=== PATIENT | female | born 1930 | race Caucasian/White ===

== ENCOUNTER 2016-07-26 12:15 | Inpatient (IN) | payer BC, MEDICARE ==
[~2016-07-26] VITALS: Ht 160 cm; Wt 106.1 kg
[~2016-07-26 12:15] MED LIST: ASPI81TA9 PO; CHOL10002 PO; LOSA25TA4 PO; LOSA50TA6 PO; OMEP20CA5 PO; OMEP20CA9 PO; SIMV20TA3 PO
--- NOTE | 2016-07-26 12:29 | ED.ADGEN ---
Past Medical History Past Medical History: GERD, High Cholesterol, Hypertension, Other Additional Past Medical Histor: torticollus Past Surgical History: Knee Replacement Additional Past Surgical Histo: Left Knee Alcohol Use: None Drug Use: None Adult General Chief Complaint Chief Complaint: WEAKNESS/GENERALIZED HPI HPI Patient is a 86 year old woman, history of hypertension, hypercholesterolemia, GERD, who presents to the emergency department via EMS with a complaint of "not feeling well", for about an hour. Patient states that about an hour ago she began feeling lightheaded, and nauseous, denies any chest pain or shortness of breath, states that she does have "some stomach pain", and points to the epigastric region, although she is unable to quantify this for me. She states that she was feeling well until about an hour ago. She denies any symptoms currently aside from feeling slightly fatigued. Symptoms lasted for about 10-15 minutes. Denies any vertiginous type symptoms, any focal weakness, numbness or tingling, any headache, any visual changes, any injuries. States that she is not compliant with medications, although she is able call which medications she takes. She states that she has felt this way previously, but cannot recall the cause. She is an O 4, however is a limited historian, states her will be able to provide more information, states that he is en route. Denies any recent travel or surgery, any cough, any fever, any GI or complaints, any swelling of the extremities, any history of DVT or PE. Review of Systems Review of Systems Constitutional: Denies fever or chills. [] Generalized malaise. Weakness. Eyes: Denies change in visual acuity. [] HENT: Denies nasal congestion or sore throat. [] Respiratory: Denies cough or shortness of breath. [] Cardiovascular: Denies chest pain or edema. [] GI: Abdominal pain, nausea, no vomiting, no bloody stools or diarrhea. : Denies dysuria. [] Musculoskeletal: Denies back pain or joint pain. [] Integument: Denies rash. [] Neurologic: Denies headache, focal weakness or sensory changes. Lightheadedness. [] Endocrine: Denies polyuria or polydipsia. [] Lymphatic: Denies swollen glands. [] Psychiatric: Denies depression or anxiety. [] Current Medications Current Medications Current Medications Medications (Trade) Dose Ordered Sig/Christiano Start Time Stop Time Status Last Admin Dose Admin Sodium Chloride (Iv Sodium Chloride 0.9% 1000ml Bag) 1,000 ml @ 75 mls/hr 1X ONCE 07/26/16 14:45 07/27/16 04:04 07/26/16 14:44 75 MLS/HR Allergies Allergies Allergies Coded Allergies Type Severity Reaction Last Updated Verified I S O L A T I O N *CONTACT* Allergy Unknown 04/15/14 Yes oxycodone Adverse Reaction Intermediate nausea 08/10/13 Yes Physical Exam Physical Exam Constitutional: Well developed, well nourished, no acute distress, non-toxic appearance. [] HENT: Normocephalic, atraumatic, bilateral external ears normal, oropharynx moist, no oral exudates, nose normal. [] Eyes: PERRLA, EOMI, conjunctiva normal, no discharge. [] Neck: Normal range of motion, no tenderness, supple, no stridor. [] Cardiovascular:Heart rate regular rhythm, no murmur, S1, S2, rubs or gallops. Soft heart sounds. [] Lungs & Thorax: Bilateral breath sounds clear to auscultation, no wheezing, no rhonchi, no rales. No chest wall crepitus or tenderness. [] Abdomen: Bowel sounds normal, soft, no tenderness, no masses, no pulsatile masses. [] Skin: Warm, dry, no erythema, no rash. [] Back: No tenderness, no CVA tenderness. [] Extremities: No tenderness, no cyanosis, no clubbing, ROM intact, no edema. [ Negative Homans sign.] Neurologic: Alert and oriented X 3, normal motor function, normal sensory function, no focal deficits noted. [] Psychologic: Affect normal, judgement normal, mood normal. [] Current Patient Data Vital Signs Vital Signs Date Time Temp Pulse Resp B/P Pulse Ox O2 Delivery O2 Flow Rate FiO2 07/26/16 12:21 98.4 60 20 171/108 96 Room Air 98.4 Lab Values Laboratory Tests Test 07/26/16 12:20 07/26/16 13:10 07/26/16 13:20 White Blood Count 6.6x10^3/uL (4.0-11.0) Red Blood Count 4.45x10^6/uL (3.50-5.40) Hemoglobin 12.5g/dL (12.0-15.5) Hematocrit 38.5% (36.0-47.0) Mean Corpuscular Volume 87fL (79-100) Mean Corpuscular Hemoglobin 28pg (25-35) Mean Corpuscular Hemoglobin Concent 33g/dL (31-37) Red Cell Distribution Width 13.7% (11.5-14.5) Platelet Count 172x10^3/uL (140-400) Neutrophils (%) (Auto) 66% (31-73) Lymphocytes (%) (Auto) 23% (24-48) L Monocytes (%) (Auto) 8% (0-9) Eosinophils (%) (Auto) 2% (0-3) Basophils (%) (Auto) 1% (0-3) Neutrophils # (Auto) 4.4x10^3uL (1.8-7.7) Lymphocytes # (Auto) 1.5x10^3/uL (1.0-4.8) Monocytes # (Auto) 0.5x10^3/uL (0.0-1.1) Eosinophils # (Auto) 0.1x10^3/uL (0.0-0.7) Basophils # (Auto) 0.0x10^3/uL (0.0-0.2) Prothrombin Time 14.1SEC (11.7-14.0) H Prothrombin Time INR 1.2 (0.8-1.1) H PTT 34SEC (24-38) Sodium Level 138mmol/L (136-145) Potassium Level 4.2mmol/L (3.5-5.1) Chloride Level 102mmol/L (98-107) Carbon Dioxide Level 26mmol/L (21-32) Anion Gap 10 (6-14) Blood Urea Nitrogen 25mg/dL (7-20) H Creatinine 1.1mg/dL (0.6-1.0) H Estimated GFR (Cockcroft-Gault) 47.2 BUN/Creatinine Ratio 23 (6-20) H Glucose Level 191mg/dL (70-99) H Calcium Level 8.8mg/dL (8.5-10.1) Total Bilirubin 0.6mg/dL (0.2-1.0) Aspartate Amino Transferase (AST) 40U/L (15-37) H Alanine Aminotransferase (ALT) 36U/L (14-59) Alkaline Phosphatase 90U/L (46-116) Troponin I Quantitative < 0.017ng/mL (0.000-0.055) HI-Jwh-R-Type Natriuretic Peptide 361pg/mL (0-449) Total Protein 7.2g/dL (6.4-8.2) Albumin 3.8g/dL (3.4-5.0) Albumin/Globulin Ratio 1.1 (1.0-1.7) Lipase 67U/L (73-393) L Lactic Acid Level 1.7mmol/L (0.4-2.0) Urine Collection Type Unknown Urine Color Yellow Urine Clarity Clear Urine pH 5.0 Urine Specific [place] 1.025 Urine Protein Negativemg/dL (NEG-TRACE) Urine Glucose (UA) 100mg/dL (NEG) Urine Ketones (Stick) Negativemg/dL (NEG) Urine Blood Small (NEG) Urine Nitrite Negative (NEG) Urine Bilirubin Negative (NEG) Urine Urobilinogen Dipstick 0.2mg/dL (0.2 mg/dL) Urine Leukocyte Esterase Negative (NEG) Urine RBC 6-10/HPF (0-2) Urine WBC 1-4/HPF (0-4) Urine Squamous Epithelial Cells Few/LPF Urine Amorphous Sediment Present/HPF Urine Bacteria Moderate/HPF (0-FEW) Urine Mucus Slight/LPF Laboratory Tests 07/26/16 12:20 Laboratory Tests 07/26/16 12:20 EKG EKG EC: Sinus rhythm, heart rate 59 bpm, left anterior fascicular block noted , left ventricle hypertrophy noted, moderate baseline artifact, QTC of 440, QRS of 116, no significant ST elevations or depressions, as interpreted by me. [] Radiology/Procedures Radiology/Procedures [] [facility] [address] [place] [address] IMAGING REPORT Signed PATIENT: ALMA ROSA HAWKINS ACCOUNT: [id number] : 1930 LOCATION: ER AGE: 86 SEX: F EXAM STATUS: PRE ER ORD. PHYSICIAN: LUIS MCCULLOUGH DO REASON: Weakness PROCEDURE: PORTABLE CHEST 1V Portable chest, 07/26/2016: History: Weakness Comparison is made to a study from 08/10/2013. The heart is at the upper limits of normal in size. The pulmonary vascularity is normal. No pulmonary infiltrates are seen. There is no evidence of pleural fluid. IMPRESSION: No acute cardiopulmonary abnormality is detected. DICTATED and SIGNED BY: DUDLEY REVELES MD DATE: 07/26/16 1037 CC: MEAGHAN ABDI MD; LUIS MCCULLOUGH DO ~ Course & Med Decision Making Course & Med Decision Making Pertinent Labs and Imaging studies reviewed. (See chart for details) Patient's laboratory studies and imaging does not reveal any acutely concerning findings, patient's ECG reveals left anterior fascicular block with left axis deviation, no other concerning findings identified. I did discuss findings with patient and family at bedside, patient was complaining of dizziness, nausea, and which describes epigastric abdominal pain without radiation which is now resolved, along with mild shortness of breath. She has none of the symptoms presently. However based on the patient's age, history of diabetes, high blood pressure, I remain concerned the symptoms could be an atypical presentation of ACS. I did discuss this with family at bedside, patient is agreeable for addition of a hospital for cardiac enzymes and continued evaluation and monitoring, states that she still is feeling generally weak at this time. Findings as above discussed with Dr. Awan, the patient's primary care provider, patient was accepted to his service as a full admission, with plan for serial enzymes and repeat ECG in the morning. Bridge orders entered per discussion. Dragon Disclaimer Dragon Disclaimer This electronic medical record was generated, in whole or in part, using a voice recognition dictation system. Departure Impression: Primary Impression: Light headedness Additional Impressions: Nausea Generalized weakness Disposition: ADMITTED INPATIENT Admitting Physician: David Awan Condition: IMPROVED Problem Qualifiers LUIS MCCULLOUGH DO Jul 26, 2016 12:29
--- NOTE | 2016-07-26 12:40 | RAD ---
Portable chest, 07/26/2016: History: Weakness Comparison is made to a study from 08/10/2013. The heart is at the upper limits of normal in size. The pulmonary vascularity is normal. No pulmonary infiltrates are seen. There is no evidence of pleural fluid. IMPRESSION: No acute cardiopulmonary abnormality is detected.
[2016-07-26 12:46] LABS: BASO % 1 % (0-3); EOS % 2 % (0-3); HEMATOCRIT 38.5 % (36.0-47.0); HEMOGLOBIN 12.5 g/dL (12.0-15.5); LYMPH # 1.5 x10^3/uL (1.0-4.8); LYMPH % 23 % (24-48); MEAN CORPUSCULAR HEMOGLOBIN 28 pg (25-35); MEAN CORPUSCULAR HGB CONC 33 g/dL (31-37); MEAN CORPUSCULAR VOLUME 87 fL (79-100); MONO % 8 % (0-9); NEUT % 66 % (31-73); PLATELET COUNT 172 x10^3/uL (140-400); RED BLOOD COUNT 4.45 x10^6/uL (3.50-5.40); RED CELL DISTRIBUTION WIDTH 13.7 % (11.5-14.5); WHITE BLOOD COUNT 6.6 x10^3/uL (4.0-11.0)
[2016-07-26 12:57] LABS: INR 1.2 (0.8-1.1); PROTHROMBIN TIME PATIENT 14.1 SEC (11.7-14.0)
[2016-07-26 12:58] LABS: CALCIUM 8.8 mg/dL (8.5-10.1); CREATININE 1.1 mg/dL (0.6-1.0); GFR 47.2; POTASSIUM 4.2 mmol/L (3.5-5.1)
[2016-07-26 13:03] LABS: ALBUMIN 3.8 g/dL (3.4-5.0); ALBUMIN/GLOBULIN RATIO 1.1 (1.0-1.7); TOTAL BILIRUBIN 0.6 mg/dL (0.2-1.0); TOTAL PROTEIN 7.2 g/dL (6.4-8.2)
[2016-07-26 13:43] LABS: BACTERIA,URINE MODERATE /HPF (0-FEW); BILIRUBIN,URINE NEGATIVE (NEG); GLUCOSE,URINE 100 mg/dL (NEG); NITRITE,URINE NEGATIVE (NEG); PROTEIN,URINE NEGATIVE (NEG-TRACE); SQUAMOUS EPITHELIAL CELL,UR FEW /LPF; UROBILINOGEN,URINE 0.2 mg/dL (0.2 mg/dL)
[2016-07-26] MEDS ORDERED: IV NORMAL SALINE 1000ML BAG 1,000 ML IV ONE (14:45)
[2016-07-26] MEDS ORDERED: ACETAMINOPHEN 325 MG TABLET. PO PRN (16:00)
[2016-07-26] MEDS ORDERED: NITROGLYCERIN SUBLINGUAL 0.4 MG BOTTLE OF 25. SL PRN (16:00)
[2016-07-26] MEDS ORDERED: ONDANSETRON PF 4 MG/2 ML VIAL. IV PRN (16:00)
--- NOTE | 2016-07-26 17:18 | ACF ---
Admission Forms Criteria DIZZINESS Clinical Indications for Admission to Inpatient Care (Place 'X' for any and all applicable criteria): Admission is indicated for ANY ONE of the following(1)(2)(3)(4): [ ]I. Inpatient admission required rather than observation care (Also use Dizziness: Observation Care as appropriate) because of ANY ONE of the following: [ ]a) Hemodynamic instability that is severe or persistent [ ]b) Signs or symptoms that are severe or persistent (eg, vomit, orthostasis, inability to ambulate) [ ]c) Cardiac arrhythmias of immediate concern [ ]d) Severe (new) neurologic findings requiring inpatient care as indicated by ANY ONE of the following(6)(7): [ ]1) Cerebral bleeding, ischemia, or vasospasm(8)(9) [ ]2) Increased intracranial pressure or hydrocephalus(10)(11)(12) [ ]3) Papilledema [ ]4) Cerebral edema [ ]5) Mass effect on CT scan [ ]e) Continuous IV infusion of anticoagulation, platelet inhibitor, vasoactive, or antiarrhythmic medication [ ]f) Cerebral bleeding, hydrocephalus, or vasospasm monitoring(14) [ ]g) Increased intracranial pressure or cerebral edema monitoring [ ]h) Vomiting that is severe or persistent [ ]i) Other condition, treatment or monitoring requiring inpatient admission [X]II. A suspected etiology that requires admission for treatment [ ]III. Acute bacterial labyrinthitis [ ]IV. Cerebellar, brainstem, or cerebral ischemia or hemorrhage (5) Extended stay beyond goal length of stay may be needed for evaluating and treating a specific cause of dizziness, including(32) [ ]a) Head injury (Also use Traumatic Brain Injury, Nonsurgical Treatment guideline) [ ]b) New-onset vertebrobasilar vascular insufficiency [ ]c) Acute Meniere disease with intractable symptoms [ ]d) Cardiac arrhythmias or conduction defects [ ]e) Acute neurologic event causing dizziness [ ]f) Myocardial ischemia [ ]g) Acute bacterial labyrinthitis. [ ]h) Severe acute vestibular neuronitis The original [facility] content created by [email or web address] has been revised. The portions of the content which have been revised are identified through the use of italic text or in bold, and [email or web address] has neither reviewed nor approved the modified material. All other unmodified content is copyright [facility]. Please see references footnoted in the original [facility] edition 2016 Admission Criteria Met?: Yes TAYLOR VELASQUEZ Jul 26, 2016 17:18
[2016-07-26] MEDS ORDERED: NAPR500T8 PO (17:59)
[2016-07-26 18:35] VITALS: BP 148/64
[2016-07-26 19:20] VITALS: BP 152/56
[2016-07-26] MEDS ORDERED: SIMVASTATIN 20 MG TABLET PO SCH (21:00)
[2016-07-26] MEDS: NAPROXEN 500 MG TABLET PO SCH (21:10)
[2016-07-26 23:38] VITALS: BP 163/58
[2016-07-27 02:54] VITALS: BP 180/65
[2016-07-27 06:54] LABS: BASO % 1 % (0-3); EOS % 2 % (0-3); HEMATOCRIT 37.5 % (36.0-47.0); HEMOGLOBIN 12.5 g/dL (12.0-15.5); LYMPH # 1.8 x10^3/uL (1.0-4.8); LYMPH % 29 % (24-48); MEAN CORPUSCULAR HEMOGLOBIN 29 pg (25-35); MEAN CORPUSCULAR HGB CONC 33 g/dL (31-37); MEAN CORPUSCULAR VOLUME 85 fL (79-100); MONO % 9 % (0-9); NEUT % 60 % (31-73); PLATELET COUNT 168 x10^3/uL (140-400); RED CELL DISTRIBUTION WIDTH 13.7 % (11.5-14.5); WHITE BLOOD COUNT 6.3 x10^3/uL (4.0-11.0)
[2016-07-27 07:00] VITALS: BP 160/86
[2016-07-27 07:08] LABS: CALCIUM 8.5 mg/dL (8.5-10.1); GFR 52.7; POTASSIUM 4.3 mmol/L (3.5-5.1)
[2016-07-27] MEDS ORDERED: PANTOPRAZOLE 40 MG TABLET.DR. PO SCH (07:30)
[2016-07-27 08:01] VITALS: BP 160/86
[2016-07-27] MEDS: NAPROXEN 500 MG TABLET PO SCH (08:01)
--- NOTE | 2016-07-27 08:07 | EKG ---
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
--- NOTE | 2016-07-27 08:31 | DISCH ---
DISCHARGE INSTRUCTIONS Condition on Discharge Condition on Discharge: Stable Activity After Discharge Activity Instructions for Disc: No restrictions Diet after Discharge Diet after Discharge: Diabetic No Calorie Level Follow-Up Follow up with: as scheduled URIEL CHAU MD Jul 27, 2016 08:31
--- NOTE | 2016-07-27 08:33 | PDOC ---
Provider Note Provider Note [id number] URIEL CHAU MD Jul 27, 2016 08:33
[2016-07-27] MEDS ORDERED: CHOLECALCIFEROL (VITAMIN D3) 1,000 UNIT TABLET PO SCH (09:00)
[2016-07-27] MEDS ORDERED: ASPIRIN ENTERIC COATED 81 MG TABLET.DR. PO SCH (09:00)
[2016-07-27] MEDS ORDERED: LOSARTAN POTASSIUM 50 MG TABLET. PO SCH (09:00)
--- NOTE | 2016-07-27 09:57 | SSS ---
ADMIT DATE: 23-HOUR SUMMARY HOSPITAL SUMMARY: An 86-year-old white female admitted with some mild nausea and "not feeling well," but no chest pain, shortness of breath, pain or any other complaints. She had been home alone and was perhaps a little anxious about her 's absence. She had a chemistry profile, troponin x 2, lactic acid, CBC and urinalysis, all of which was unremarkable as was chest x-ray and EKG x 2. She is comfortable with stable vital signs at this time and able to be followed as an outpatient. FINAL DIAGNOSIS: Dysphoria, likely secondary to anxiety. OPERATIONS, PROCEDURES, COMPLICATIONS, AND CONSULTATIONS: None. DISPOSITION: Continue home meds the same including not taking the aspirin as the drug is greater risk than benefit. Diabetic diet, good fluid intake, regular followup as scheduled. URIEL CHAU MD DR: JESSIE/davon JOB#: [id number] / [id number]
== END 2016-07-27 09:31 | disposition home or self-care (01) | DRG 880 ==
LOC: ER 12:15 → 5 NORTH 14:22
PROVIDERS: ADMIT Family Medicine; ATTEND Family Medicine
DX: F41.9 Anxiety disorder, unspecified (principal); E78.00 Pure hypercholesterolemia, unspecified; I10 Essential (primary) hypertension; K21.9 Gastro-esophageal reflux disease without esophagitis; Z96.659 Presence of unspecified artificial knee joint; Z60.2 Problems related to living alone; F64.0 Transsexualism; Z88.5 Allergy status to narcotic agent
CPT/HCPCS: 36415; 71010; 80048; 80053; 81001; 82947; 83605; 83690; 83880; 84484; 85027; 85610; 85730; 87086; 93005; J2405; J7030; 99285-25

== ENCOUNTER 2016-09-24 21:06 | Emergency (ER) | payer BC ==
[~2016-09-24] VITALS: Ht 160 cm; Wt 106.1 kg
[~2016-09-24 21:06] MED LIST changes: +ASPI-612 PO; -ASPI81TA9 PO; +NAPR500T8 PO
[2016-09-24 21:47] VITALS: BP 111/63
[2016-09-24 22:09] LABS: BILIRUBIN,URINE NEGATIVE (NEG); GLUCOSE,URINE NEGATIVE (NEG); NITRITE,URINE NEGATIVE (NEG); PROTEIN,URINE NEGATIVE (NEG-TRACE); UROBILINOGEN,URINE 0.2 mg/dL (0.2 mg/dL)
[2016-09-24 22:16] LABS: BACTERIA,URINE 0 /HPF (0-FEW); RBC,URINE 0 /HPF (0-2); SQUAMOUS EPITHELIAL CELL,UR FEW /LPF; WBC,URINE >40 /HPF (0-4)
--- NOTE | 2016-09-24 22:28 | PHYS DOC ---
Past Medical History Past Medical History: GERD, High Cholesterol, Hypertension, Other Additional Past Medical Histor: torticollus Past Surgical History: Knee Replacement Additional Past Surgical Histo: Left Knee Alcohol Use: None Drug Use: None Adult General Chief Complaint Chief Complaint: DIZZY/LIGHT HEADED HPI HPI Patient is a 86 year old F who presents with dizziness and not feeling well since returning home from the [place] [facility] [employer] picnic that got over around 4 PM this afternoon. Patient states she's is has disequilibrium with no room spinning and worse when she gets up and walks. Patient states he attempted to eat some dinner tonight and felt extremely nauseous but did not vomit. Patient denies any fevers. Patient denies any chest pain or shortness of breath. Patient denies any nausea/vomiting/diarrhea. Patient has no other complaints. Pertinent exam findings: Cranial nerves II through XII are grossly intact without any focal neurological deficits Heart was regular rate and rhythm without any murmurs Lungs are clear to auscultation bilaterally without crackles wheeze or rales ED course: Patient was seen and examined in the emergency room a CBC, CMP, UA, EKG, chest x -ray, CT scan of head without contrast were ordered 0039: Patient was reexamined and updated on her CT results and lab results. Patient is sitting up at the side of the bed and states she feels much better and is ready go home. Explained to the patient that her urine shows greater than 40 WBCs in it therefore will treat her for suspected UTI. Patient states that when she gets UTIs she usually has these type of feelings. Pertinent results: 2152: EKG shows normal sinus rhythm rate of 64 no STEMI A shows greater than [address] scan of head is unremarkable Chest x-ray is an NAD MDM: After reviewing the chart, CC/HPI/PMH, physical exam, [lab results], [ radiological results], I do not believe the patient had acute intercranial process or severe bacterial infection warranting further workup and/or admission at this time. On reexamination the patient is asymptomatic sitting up on the side of the bed feels much better and would like to go home. Discussed treating the patient for suspected UTI given that she has more than 40 WBCs in her urine. Patient states that historically urinary tract infections causes her to be weak and fatigued. Patient is comfortable going home and will follow-up with PCP in one to 2 days. Patient is stable for discharge. Additional verbal discharge instructions were provided to the patient and that if symptoms get worse or any new symptoms arise that are worrisome to the patient she is to return to the emergency room immediately Review of Systems Review of Systems GEN: Denies HEENT: Denies blurred vision, sore throat CV: Denies chest pain RESP: Denies shortness of air, cough GI: Denies n/v/d NEURO: dizziness MSK: Denies weakness, joint pain/swelling Current Medications Current Medications Current Medications Medications (Trade) Dose Ordered Sig/Christiano Start Time Stop Time Status Last Admin Dose Admin Sodium Chloride 1,000 ml @ 1,000 mls/hr 1X ONCE 09/24/16 22:30 09/24/16 23:29 DC 09/24/16 23:01 1,000 MLS/HR Allergies Allergies Allergies Coded Allergies Type Severity Reaction Last Updated Verified I S O L A T I O N *CONTACT* Allergy Unknown 04/15/14 Yes oxycodone Adverse Reaction Intermediate nausea 08/10/13 Yes Physical Exam Physical Exam GEN.: No apparent distress. Alert and oriented. HEENT: Head is normocephalic, atraumatic NECK: Supple. LUNGS: CTAB. HEART: RRR, S1, S2 present. Peripheral pulses intact ABDOMEN: Soft, nontender. Positive bowel sounds. EXTREMITIES: Without any cyanosis. NEUROLOGIC: Normal speech, normal tone PSYCHIATRIC: Normal affect, normal mood. SKIN: No ulcerations Current Patient Data Vital Signs Vital Signs Date Time Temp Pulse Resp B/P (MAP) Pulse Ox O2 Delivery O2 Flow Rate FiO2 09/24/16 21:47 98.4 68 22 111/63 (79) 97 Room Air 98.4 Lab Values Laboratory Tests Test 09/24/16 19:45 09/24/16 23:00 Urine Collection Type Unknown Urine Color Yellow Urine Clarity Clear Urine pH 5.0 Urine Specific [place] 1.025 Urine Protein Negative mg/dL (NEG-TRACE) Urine Glucose (UA) Negative mg/dL (NEG) Urine Ketones (Stick) Negative mg/dL (NEG) Urine Blood Negative (NEG) Urine Nitrite Negative (NEG) Urine Bilirubin Negative (NEG) Urine Urobilinogen Dipstick 0.2 mg/dL (0.2 mg/dL) Urine Leukocyte Esterase Small (NEG) Urine RBC 0 /HPF (0-2) Urine WBC >40 /HPF (0-4) Urine Squamous Epithelial Cells Few /LPF Urine Transitional Epithelial Cells Few /LPF Urine Bacteria 0 /HPF (0-FEW) Urine Mucus Mod /LPF White Blood Count 7.7 x10^3/uL (4.0-11.0) Red Blood Count 4.41 x10^6/uL (3.50-5.40) Hemoglobin 12.5 g/dL (12.0-15.5) Hematocrit 37.1 % (36.0-47.0) Mean Corpuscular Volume 84 fL (79-100) Mean Corpuscular Hemoglobin 28 pg (25-35) Mean Corpuscular Hemoglobin Concent 34 g/dL (31-37) Red Cell Distribution Width 14.4 % (11.5-14.5) Platelet Count 185 x10^3/uL (140-400) Neutrophils (%) (Auto) 69 % (31-73) Lymphocytes (%) (Auto) 22 % (24-48) L Monocytes (%) (Auto) 7 % (0-9) Eosinophils (%) (Auto) 2 % (0-3) Basophils (%) (Auto) 0 % (0-3) Neutrophils # (Auto) 5.3 x10^3uL (1.8-7.7) Lymphocytes # (Auto) 1.7 x10^3/uL (1.0-4.8) Monocytes # (Auto) 0.6 x10^3/uL (0.0-1.1) Eosinophils # (Auto) 0.1 x10^3/uL (0.0-0.7) Basophils # (Auto) 0.0 x10^3/uL (0.0-0.2) Sodium Level 140 mmol/L (136-145) Potassium Level 4.4 mmol/L (3.5-5.1) Chloride Level 104 mmol/L (98-107) Carbon Dioxide Level 27 mmol/L (21-32) Anion Gap 9 (6-14) Blood Urea Nitrogen 23 mg/dL (7-20) H Creatinine 1.2 mg/dL (0.6-1.0) H Estimated GFR (Cockcroft-Gault) 42.7 BUN/Creatinine Ratio 19 (6-20) Glucose Level 186 mg/dL (70-99) H Calcium Level 8.6 mg/dL (8.5-10.1) Total Bilirubin 0.3 mg/dL (0.2-1.0) Aspartate Amino Transferase (AST) 33 U/L (15-37) Alanine Aminotransferase (ALT) 35 U/L (14-59) Alkaline Phosphatase 121 U/L (46-116) H Troponin I Quantitative < 0.017 ng/mL (0.000-0.055) Total Protein 6.8 g/dL (6.4-8.2) Albumin 3.6 g/dL (3.4-5.0) Albumin/Globulin Ratio 1.1 (1.0-1.7) Laboratory Tests 09/24/16 23:00 Laboratory Tests 09/24/16 23:00 EKG EKG Normal sinus rhythm at a 64 no STEMI [] Radiology/Procedures Radiology/Procedures CT the head negative Chest x-ray NAD Course & Med Decision Making Course & Med Decision Making Pertinent Labs and Imaging studies reviewed. (See chart for details) [] Dragon Disclaimer Dragon Disclaimer This electronic medical record was generated, in whole or in part, using a voice recognition dictation system. Departure Departure Impression: Primary Impression: UTI (urinary tract infection) Additional Impression: Fatigue Disposition: 01 HOME, SELF-CARE Condition: IMPROVED Referrals: URIEL CHAU MD (PCP) Patient Instructions: Urinary Tract Infection Additional Instructions: Leads follow-up with her family doctor next one to 2 days and return symptoms increase Scripts Cephalexin (KEFLEX) 500 Mg Capsule 1 CAP PO TID for 5 Days, #15 CAP Prov: GADIEL TAYLOR DO 09/25/16 Problem Qualifiers Primary Impression: UTI (urinary tract infection) Urinary tract infection type: acute cystitis Hematuria presence: without hematuria Qualified Codes: N30.00 - Acute cystitis without hematuria Additional Impression: Fatigue Fatigue type: unspecified Qualified Codes: R53.83 - Other fatigue GADIEL TAYLOR DO Sep 24, 2016 22:28
[2016-09-24] MEDS ORDERED: IV NORMAL SALINE 1000ML BAG 1,000 ML IV ONE (22:30)
--- NOTE | 2016-09-24 22:51 | RAD ---
CT HEAD PQRS STATEMENT: One or more of the following in the visualized dose reduction techniques were utilized for this study: 1. Automatic exposure control, 2. Adjustment of the mA and/or kV according to patient size, 3. Use of iterative reconstruction technique INDICATION: dizziness, nausea, vomiting COMPARISON: None Available. TECHNIQUE: 5 mm contiguous axial images were obtained from the skull base to the vertex in both bone and soft tissue algorithm. FINDINGS: No abnormal attenuation within the brain parenchyma. No evidence of intracranial hemorrhage. No extra-axial fluid collections. No mass effect or midline shift. Ventricular size is appropriate. Basal cisterns are patent. No fractures identified.Byrnes-white differentiation is preserved.Globes and orbits are within normal limits. Paranasal sinuses and mastoid air cells are clear. IMPRESSION: No acute intracranial abnormality. Electronically signed by: Linus Paulino MD (09/24/2016 10:47 PM)
[2016-09-24 23:18] LABS: BASO % 0 % (0-3); EOS % 2 % (0-3); HEMATOCRIT 37.1 % (36.0-47.0); HEMOGLOBIN 12.5 g/dL (12.0-15.5); LYMPH # 1.7 x10^3/uL (1.0-4.8); LYMPH % 22 % (24-48); MEAN CORPUSCULAR HEMOGLOBIN 28 pg (25-35); MEAN CORPUSCULAR HGB CONC 34 g/dL (31-37); MEAN CORPUSCULAR VOLUME 84 fL (79-100); MONO % 7 % (0-9); NEUT % 69 % (31-73); PLATELET COUNT 185 x10^3/uL (140-400); RED BLOOD COUNT 4.41 x10^6/uL (3.50-5.40); RED CELL DISTRIBUTION WIDTH 14.4 % (11.5-14.5); WHITE BLOOD COUNT 7.7 x10^3/uL (4.0-11.0)
[2016-09-24 23:24] LABS: CALCIUM 8.6 mg/dL (8.5-10.1); CREATININE 1.2 mg/dL (0.6-1.0); GFR 42.7; POTASSIUM 4.4 mmol/L (3.5-5.1)
[2016-09-24 23:29] LABS: ALBUMIN 3.6 g/dL (3.4-5.0); ALBUMIN/GLOBULIN RATIO 1.1 (1.0-1.7); TOTAL BILIRUBIN 0.3 mg/dL (0.2-1.0); TOTAL PROTEIN 6.8 g/dL (6.4-8.2)
--- NOTE | 2016-09-24 23:29 | ACF ---
Admission Forms Criteria DIZZINESS Clinical Indications for Admission to Inpatient Care (Place 'X' for any and all applicable criteria): Admission is indicated for ANY ONE of the following(1)(2)(3)(4): [X]I. Inpatient admission required rather than observation care (Also use Dizziness: Observation Care as appropriate) because of ANY ONE of the following: [ ]a) Hemodynamic instability that is severe or persistent [X]b) Signs or symptoms that are severe or persistent (eg, vomit, orthostasis, inability to ambulate) [ ]c) Cardiac arrhythmias of immediate concern [ ]d) Severe (new) neurologic findings requiring inpatient care as indicated by ANY ONE of the following(6)(7): [ ]1) Cerebral bleeding, ischemia, or vasospasm(8)(9) [ ]2) Increased intracranial pressure or hydrocephalus(10)(11)(12) [ ]3) Papilledema [ ]4) Cerebral edema [ ]5) Mass effect on CT scan [ ]e) Continuous IV infusion of anticoagulation, platelet inhibitor, vasoactive, or antiarrhythmic medication [ ]f) Cerebral bleeding, hydrocephalus, or vasospasm monitoring(14) [ ]g) Increased intracranial pressure or cerebral edema monitoring [ ]h) Vomiting that is severe or persistent [ ]i) Other condition, treatment or monitoring requiring inpatient admission [ ]II. A suspected etiology that requires admission for treatment [ ]III. Acute bacterial labyrinthitis [ ]IV. Cerebellar, brainstem, or cerebral ischemia or hemorrhage (5) Extended stay beyond goal length of stay may be needed for evaluating and treating a specific cause of dizziness, including(32) [ ]a) Head injury (Also use Traumatic Brain Injury, Nonsurgical Treatment guideline) [ ]b) New-onset vertebrobasilar vascular insufficiency [ ]c) Acute Meniere disease with intractable symptoms [ ]d) Cardiac arrhythmias or conduction defects [ ]e) Acute neurologic event causing dizziness [ ]f) Myocardial ischemia [ ]g) Acute bacterial labyrinthitis. [ ]h) Severe acute vestibular neuronitis The original [employer] content created by [employer] has been revised. The portions of the content which have been revised are identified through the use of italic text or in bold, and [facility] [employer] has neither reviewed nor approved the modified material. All other unmodified content is copyright [facility]. Please see references footnoted in the original [facility] edition 2016 Admission Criteria Met?: Yes CHELLE HOWELL Sep 24, 2016 23:29
[2016-09-25] MEDS ORDERED: CEPH-264 PO (00:47)
--- NOTE | 2016-09-25 08:10 | RAD ---
Indication dizziness. Weakness. Suspect CVA. Protocol exam. PA and lateral views of the chest were obtained and are compared to an examination 07/26/2016. The heart and pulmonary vessels are normal. The lungs are clear. There has not been a significant change compared to the previous exam. IMPRESSION: No acute or focal process. No significant change
--- NOTE | 2016-09-25 12:51 | EKG ---
[facility] [address] [place] [address] Test Date: 2016-09-24 Test Time: 21:50:06 Pat Name: ALMA ROSA HAWKINS Department: Room: Gender: F Flight Readiness Technician: LSE ZALDIVAR : 1930 Requested By: GADIEL TAYLOR Order Number: [id number] Reading MD: Zaina West Measurements Intervals [place] Rate: 64 P: 47 MO: 178 QRS: -38 QRSD: 114 T: 66 QT: 432 QTc: 445 Interpretive Statements SINUS RHYTHM ABNORMAL LEFT AXIS DEVIATION LEFT VENTRICULAR HYPERTROPHY T ABNORMALITY IN HIGH LATERAL LEADS Electronically Signed On 09-25-2016 21:24:17 CDT by Zaina West
== END 2016-09-25 01:08 | disposition home or self-care (01) ==
LOC: ER 21:06
DX: N30.00 Acute cystitis without hematuria (principal); R53.83 Other fatigue; R42 Dizziness and giddiness; K21.9 Gastro-esophageal reflux disease without esophagitis; E78.00 Pure hypercholesterolemia, unspecified; I10 Essential (primary) hypertension; Z88.5 Allergy status to narcotic agent; Z91.041 Radiographic dye allergy status; Z96.652 Presence of left artificial knee joint
CPT/HCPCS: 36415; 70450; 71020; 80053; 81001; 84484; 85027; 87086; 93005; 96360; 96361; 99285; J7030

== ENCOUNTER 2017-05-08 15:36 | Inpatient (IN) | payer BC ==
[2017-05-08 18:37] LABS: ADD MAN DIFF? NO
[2017-05-08 18:48] LABS: BASO % 0 % (0-3); EOS % 0 % (0-3); HEMATOCRIT 36.5 % (36.0-47.0); HEMOGLOBIN 12.1 g/dL (12.0-15.5); LYMPH # 0.9 x10^3/uL (1.0-4.8); LYMPH % 11 % (24-48); MEAN CORPUSCULAR HEMOGLOBIN 29 pg (25-35); MEAN CORPUSCULAR HGB CONC 33 g/dL (31-37); MEAN CORPUSCULAR VOLUME 86 fL (79-100); MONO # 0.9 x10^3/uL (0.0-1.1); MONO % 11 % (0-9); NEUT # 6.1 x10^3uL (1.8-7.7); NEUT % 77 % (31-73); PLATELET COUNT 133 x10^3/uL (140-400); RED BLOOD COUNT 4.23 x10^6/uL (3.50-5.40); RED CELL DISTRIBUTION WIDTH 13.6 % (11.5-14.5); WHITE BLOOD COUNT 7.9 x10^3/uL (4.0-11.0)
[2017-05-08 18:54] LABS: ANION GAP 12 (6-14); BLOOD UREA NITROGEN 17 mg/dL (7-20); BUN/CREATININE RATIO 15 (6-20); CALCIUM 8.4 mg/dL (8.5-10.1); CARBON DIOXIDE 25 mmol/L (21-32); CHLORIDE 100 mmol/L (98-107); CREATININE 1.1 mg/dL (0.6-1.0); GFR 47.1; GLUCOSE 140 mg/dL (70-99); SODIUM 137 mmol/L (136-145)
[2017-05-08 18:57] LABS: INR 1.2 (0.8-1.1); PROTHROMBIN TIME PATIENT 14.6 SEC (11.7-14.0)
[2017-05-08 18:58] LABS: PARTIAL THROMBOPLASTIN TIME 36 SEC (24-38)
[2017-05-08 18:59] LABS: TROPONINI < 0.017 ng/mL (0.000-0.055)
[2017-05-08 19:00] LABS: ALBUMIN 3.2 g/dL (3.4-5.0); ALBUMIN/GLOBULIN RATIO 0.9 (1.0-1.7); ALK PHOS 67 U/L (46-116); ALT (SGPT) 40 U/L (14-59); AST (SGOT) 60 U/L (15-37); CREATINE KINASE 79 U/L (26-192); LIPASE 47 U/L (73-393); MAGNESIUM 1.6 mg/dL (1.8-2.4); TOTAL BILIRUBIN 0.4 mg/dL (0.2-1.0); TOTAL PROTEIN 6.7 g/dL (6.4-8.2)
[2017-05-08 19:02] LABS: NT-PRO BNP 1365 pg/mL (0-449)
[2017-05-08 19:05] LABS: THYROID STIM HORMONE (TSH) 5.138 uIU/mL (0.358-3.74)
[2017-05-08] MEDS: IV NORMAL SALINE 500ML BAG 500 ML IV (19:06)
[2017-05-08] MEDS: AZITHROMYCIN 250 MG TABLET. PO (19:15)
[2017-05-08] MEDS ORDERED: ONDANSETRON PF 4 MG/2 ML VIAL. IV (19:15)
[2017-05-08] MEDS: MAGNESIUM OXIDE 400 MG TABLET PO (19:54)
[2017-05-08 20:01] LABS: BILIRUBIN,URINE NEGATIVE (NEG); CLARITY,URINE CLEAR; COLOR,URINE YELLOW; GLUCOSE,URINE NEGATIVE (NEG); NITRITE,URINE NEGATIVE (NEG); PH,URINE 5.5; PROTEIN,URINE 30 mg/dL (NEG-TRACE); UROBILINOGEN,URINE 0.2 mg/dL (0.2 mg/dL)
[2017-05-08 20:12] LABS: BACTERIA,URINE FEW /HPF (0-FEW); RBC,URINE 0 /HPF (0-2); SQUAMOUS EPITHELIAL CELL,UR FEW /LPF
[2017-05-08 20:41] LABS: INFLUENZA A PATIENT POSITIVE (NEGATIVE); INFLUENZA B PATIENT NEGATIVE (NEGATIVE); OBC FLU VALID
[2017-05-08] MEDS ORDERED: POLYETHYLENE GLYCOL 3350 17 GM PACKET. PO (23:00)
[2017-05-08] MEDS: OSELTAMIVIR 30 MG CAPSULE PO (23:32)
[2017-05-08] MEDS: SIMVASTATIN 10 MG TABLET PO (23:32)
[2017-05-08] MEDS: NAPROXEN 500 MG TABLET PO (23:32)
[2017-05-09 05:12] LABS: ADD MAN DIFF? NO
[2017-05-09 05:29] LABS: BASO % 0 % (0-3); EOS % 0 % (0-3); HEMATOCRIT 34.5 % (36.0-47.0); HEMOGLOBIN 11.4 g/dL (12.0-15.5); LYMPH # 1.2 x10^3/uL (1.0-4.8); LYMPH % 17 % (24-48); MEAN CORPUSCULAR HEMOGLOBIN 28 pg (25-35); MEAN CORPUSCULAR HGB CONC 33 g/dL (31-37); MEAN CORPUSCULAR VOLUME 86 fL (79-100); MONO % 14 % (0-9); NEUT % 69 % (31-73); PLATELET COUNT 108 x10^3/uL (140-400); RED CELL DISTRIBUTION WIDTH 13.7 % (11.5-14.5); WHITE BLOOD COUNT 7.3 x10^3/uL (4.0-11.0)
[2017-05-09 05:36] LABS: ANION GAP 10 (6-14); BLOOD UREA NITROGEN 18 mg/dL (7-20); CARBON DIOXIDE 26 mmol/L (21-32); CHLORIDE 102 mmol/L (98-107); CREATININE 1.1 mg/dL (0.6-1.0); GFR 47.1; GLUCOSE 111 mg/dL (70-99); POTASSIUM 3.7 mmol/L (3.5-5.1); SODIUM 138 mmol/L (136-145)
[2017-05-09] MEDS ORDERED: NAPROXEN 500 MG TABLET PO (09:00)
[2017-05-09] MEDS ORDERED: AZITHROMYCIN PO (09:00)
[2017-05-09] MEDS: OSELTAMIVIR 30 MG CAPSULE PO ×2 (10:19→20:23)
[2017-05-09] MEDS: CYANOCOBALAMIN (VITAMIN B-12) 1,000 MCG TABLET. PO (10:19)
[2017-05-09] MEDS: NAPROXEN 500 MG TABLET PO ×2 (10:20→20:22)
[2017-05-09] MEDS: LOSARTAN POTASSIUM 50 MG TABLET. PO (10:20)
[2017-05-09] MEDS: CHOLECALCIFEROL (VITAMIN D3) 1,000 UNIT TABLET PO (10:20)
[2017-05-09] MEDS: PANTOPRAZOLE 40 MG TABLET.DR. PO (10:21)
[2017-05-09] MEDS: IPRATRPIUM/ALBUTEROL 0.5/2.5MG 3 ML NEBU. NEB ×3 (11:59→19:05)
[2017-05-09] MEDS: LACTOBACILLUS RHAMNOSUS GG 1 CAPSULE. PO (20:23)
[2017-05-09] MEDS: cefTRIAXone IV Push 1 GM VIAL. IVP (20:24)
[2017-05-09] MEDS: SIMVASTATIN 10 MG TABLET PO (20:24)
[2017-05-09] MEDS ORDERED: SIMVASTATIN 10 MG TABLET PO (21:00)
[2017-05-09] MEDS: BENZOCAINE/MENTHOL LOZENGE. PO (23:40)
[2017-05-10] MEDS: BENZOCAINE/MENTHOL LOZENGE. PO ×2 (02:57→12:13)
[2017-05-10 06:11] LABS: PLATELET COUNT 131 x10^3/uL (140-400)
[2017-05-10] MEDS: IPRATRPIUM/ALBUTEROL 0.5/2.5MG 3 ML NEBU. NEB ×2 (08:05→12:08)
[2017-05-10] MEDS: LOSARTAN POTASSIUM 50 MG TABLET. PO (08:26)
[2017-05-10] MEDS: NAPROXEN 500 MG TABLET PO (08:27)
[2017-05-10] MEDS: OSELTAMIVIR 30 MG CAPSULE PO (08:29)
[2017-05-10] MEDS: LACTOBACILLUS RHAMNOSUS GG 1 CAPSULE. PO (08:29)
[2017-05-10] MEDS: CHOLECALCIFEROL (VITAMIN D3) 1,000 UNIT TABLET PO (08:30)
[2017-05-10] MEDS: PANTOPRAZOLE 40 MG TABLET.DR. PO (08:30)
[2017-05-10] MEDS: CYANOCOBALAMIN (VITAMIN B-12) 1,000 MCG TABLET. PO (08:30)
[2017-05-10 08:58] LABS: FREE T4 0.97 ng/dL (0.76-1.46)
== END 2017-05-10 14:50 | disposition home or self-care (01) | DRG 193 ==
LOC: ER 15:36 → 5 SOUTH 19:00
DX: J10.1 Influenza due to other identified influenza virus with other respiratory manifestations (principal); G93.40 Encephalopathy, unspecified; E83.42 Hypomagnesemia; D69.6 Thrombocytopenia, unspecified; W05.0XXA Fall from non-moving wheelchair, initial encounter; E03.9 Hypothyroidism, unspecified; E78.00 Pure hypercholesterolemia, unspecified; I10 Essential (primary) hypertension; K21.9 Gastro-esophageal reflux disease without esophagitis; Z96.659 Presence of unspecified artificial knee joint; J32.9 Chronic sinusitis, unspecified; Y93.89 Activity, other specified; Y92.098 Other place in other non-institutional residence as the place of occurrence of the external cause; Y99.8 Other external cause status; Z88.5 Allergy status to narcotic agent
CPT/HCPCS: 36415; 70450; 71045; 80048; 80053; 81001; 82550; 83690; 83735; 83880; 84439; 84443; 84484; 85025; 85049; 85610; 85730; 87804; 87804-59; 93005; 93306; 94618; 94640; 96374; 97161-GP; 99285; 99285-25; J0690; J0696; J7040; J7620

== ENCOUNTER → 2018-01-25 | Outpatient (CLI) | payer BC ==
[2017-05-10 10:29] VITALS: BP 151/55
[~2018-01-25] MED LIST changes: +AZIT500T2 PO; +CEPH-264 PO; +CYAN100031 PO; +GUAI600T47 PO; -LOSA25TA4 PO; +LOSA25TA5 PO; -LOSA50TA6 PO; +LOSA50TA7 PO; +POLY17PO29 PO
--- NOTE | 2018-01-25 17:31 | KCIC ---
LUMBAR SPINE MIN 4V History: Chronic low back pain Comparison: None. Findings: 5 views of the lumbar spine are submitted. There is mild lumbar levoscoliosis. There is more advanced degenerative disc disease L5-S1, minimally L2-3 through L4-5. There is mild superior endplate concavity of L3. There is multilevel spondylosis. There is facet degenerative change greater inferiorly of the lumbar spine. There is atherosclerotic calcification abdominal aorta. Impression: 1. There is more advanced degenerative disc disease L5-S1, minimally at more superior levels. There is multilevel spondylosis and facet degenerative change. There is mild superior L3 endplate concavity of uncertain chronicity although may be older unless suspicion for more recent compression injury. Electronically signed by: Myke Tenorio MD (01/25/2018 5:27 PM) [facility]
== END | disposition home or self-care (01) ==
LOC: KCIC 13:38
PROVIDERS: ATTEND Family Medicine
DX: M51.37 Other intervertebral disc degeneration, lumbosacral region (principal); M47.896 Other spondylosis, lumbar region; I70.0 Atherosclerosis of aorta
CPT/HCPCS: 72110

== ENCOUNTER 2018-07-28 16:46 | Inpatient (IN) | payer BC ==
[~2018-07-28] VITALS: Ht 160 cm; Wt 91.8 kg
[~2018-07-28 16:46] MED LIST changes: +LOSA-73 PO; -LOSA25TA5 PO; +LOSA25TA54 PO; -LOSA50TA7 PO; +OMEP20CA10 PO; -OMEP20CA9 PO
[2018-07-28] MEDS ORDERED: hydrALAZINE 20 MG/ML VIAL. IVP ONE ×2 (17:15→21:15)
--- NOTE | 2018-07-28 17:21 | PHYS DOC ---
Past Medical History Past Medical History: GERD, High Cholesterol, Hypertension, Other Additional Past Medical Histor: torticollus (AMANDA PRUITT MD) Past Surgical History: Knee Replacement Additional Past Surgical Histo: Left Knee (AMANDA PRUITT MD) Alcohol Use: None Drug Use: None (AMANDA PRUITT MD) Adult General Chief Complaint Chief Complaint: DIZZY/LIGHT HEADED HPI HPI Patient is a 88 year old female who presents with complaining of not feeling good and dizziness. Patient states since this morning she didn't feel good and had nausea and for the last couple of hours she has had constant dizziness. Patient denies chest pain, shortness of breath, new focal neuro deficit, fever and chills, vomiting and diarrhea. She had blood pressure of 240 at arrival to ER. (AMANDA PRUITT MD) Review of Systems Review of Systems Constitutional: Denies fever or chills [] Eyes: Denies change in visual acuity, redness, or eye pain [] HENT: Denies nasal congestion or sore throat [] Respiratory: Denies cough or shortness of breath [] Cardiovascular: No additional information not addressed in HPI [] GI: Denies abdominal pain, vomiting, bloody stools or diarrhea mild reports nausea[] : Denies dysuria or hematuria [] Musculoskeletal: Denies back pain or joint pain [] Integument: Denies rash or skin lesions [] Neurologic: Denies headache, focal weakness or sensory changes , reports dizziness[] Endocrine: Denies polyuria or polydipsia [] All other systems were reviewed and found to be within normal limits, except as documented in this note. (AMANDA PRUITT MD) Current Medications Current Medications Current Medications Medications (Trade) Dose Ordered Sig/Christiano Start Time Stop Time Status Last Admin Dose Admin Hydralazine HCl (Apresoline Inj) 10 mg 1X ONCE 07/28/18 21:15 07/28/18 21:16 DC 07/28/18 21:06 10 MG Info (CONTRAST GIVEN -- Rx MONITORING) 1 each PRN DAILY PRN 07/28/18 20:30 07/30/18 20:29 Iohexol (Omnipaque 300 Mg/ml) 60 ml 1X ONCE 07/28/18 20:30 07/28/18 20:31 DC 07/28/18 20:34 60 ML Ondansetron HCl (Zofran) 4 mg 1X ONCE 07/28/18 17:30 07/28/18 17:31 DC 07/28/18 17:35 4 MG Sodium Chloride 1,000 ml @ 1,000 mls/hr 1X ONCE 07/28/18 20:30 07/28/18 21:29 DC 07/28/18 21:05 1,000 MLS/HR (DEONNA CUEVA MD) Allergies Allergies Allergies Coded Allergies Type Severity Reaction Last Updated Verified oxycodone Adverse Reaction Intermediate nausea 08/10/13 Yes (DEONNA CUEVA MD) Physical Exam Physical Exam Constitutional: Well developed, well nourished, moderate distress, non-toxic appearance. [] HENT: Normocephalic, atraumatic, bilateral external ears normal, oropharynx moist, no oral exudates, nose normal. [] Eyes: PERRLA, EOMI, conjunctiva normal, no discharge. [] Neck: Normal range of motion, no tenderness, supple, no stridor. [] Cardiovascular:Heart rate regular rhythm, no murmur [] Lungs & Thorax: Bilateral breath sounds clear to auscultation [] Abdomen: Bowel sounds normal, soft, no tenderness, no masses, no pulsatile masses. [] Skin: Warm, dry, no erythema, no rash. [] Back: No tenderness, no CVA tenderness. [] Extremities: No tenderness, no cyanosis, no clubbing, ROM intact, no edema. [] Neurologic: Alert and oriented X 3, normal motor function, normal sensory function, no focal deficits noted. [] Psychologic: Affect normal, judgement normal, mood normal. [] (AMANDA PRUITT MD) Current Patient Data Vital Signs Vital Signs Date Time Temp Pulse Resp B/P (MAP) Pulse Ox O2 Delivery O2 Flow Rate FiO2 07/28/18 21:06 69 214/86 07/28/18 18:42 16 99 07/28/18 16:57 98.7 Room Air 98.7 (DEONNA CUEVA MD) Lab Values Laboratory Tests Test 07/28/18 17:50 07/28/18 20:15 White Blood Count 6.0 x10^3/uL (4.0-11.0) Red Blood Count 4.33 x10^6/uL (3.50-5.40) Hemoglobin 12.3 g/dL (12.0-15.5) Hematocrit 37.8 % (36.0-47.0) Mean Corpuscular Volume 87 fL (79-100) Mean Corpuscular Hemoglobin 29 pg (25-35) Mean Corpuscular Hemoglobin Concent 33 g/dL (31-37) Red Cell Distribution Width 14.0 % (11.5-14.5) Platelet Count 146 x10^3/uL (140-400) Neutrophils (%) (Auto) 70 % (31-73) Lymphocytes (%) (Auto) 21 % (24-48) L Monocytes (%) (Auto) 5 % (0-9) Eosinophils (%) (Auto) 3 % (0-3) Basophils (%) (Auto) 0 % (0-3) Neutrophils # (Auto) 4.2 x10^3uL (1.8-7.7) Lymphocytes # (Auto) 1.3 x10^3/uL (1.0-4.8) Monocytes # (Auto) 0.3 x10^3/uL (0.0-1.1) Eosinophils # (Auto) 0.2 x10^3/uL (0.0-0.7) Basophils # (Auto) 0.0 x10^3/uL (0.0-0.2) Sodium Level 138 mmol/L (136-145) Potassium Level 4.7 mmol/L (3.5-5.1) Chloride Level 103 mmol/L (98-107) Carbon Dioxide Level 26 mmol/L (21-32) Anion Gap 9 (6-14) Blood Urea Nitrogen 26 mg/dL (7-20) H Creatinine 1.2 mg/dL (0.6-1.0) H Estimated GFR (Cockcroft-Gault) 42.5 BUN/Creatinine Ratio 22 (6-20) H Glucose Level 154 mg/dL (70-99) H Calcium Level 8.8 mg/dL (8.5-10.1) Magnesium Level 1.9 mg/dL (1.8-2.4) Total Bilirubin 0.5 mg/dL (0.2-1.0) Aspartate Amino Transferase (AST) 38 U/L (15-37) H Alanine Aminotransferase (ALT) 32 U/L (14-59) Alkaline Phosphatase 106 U/L (46-116) Creatine Kinase 63 U/L (26-192) Troponin I Quantitative < 0.017 ng/mL (0.000-0.055) UL-Uho-O-Type Natriuretic Peptide 442 pg/mL (0-449) Total Protein 7.1 g/dL (6.4-8.2) Albumin 3.7 g/dL (3.4-5.0) Albumin/Globulin Ratio 1.1 (1.0-1.7) Lipase 56 U/L (73-393) L Urine Collection Type Unknown Urine Color Yellow Urine Clarity Clear Urine pH 6.0 Urine Specific [place] 1.020 Urine Protein Negative mg/dL (NEG-TRACE) Urine Glucose (UA) Negative mg/dL (NEG) Urine Ketones (Stick) Negative mg/dL (NEG) Urine Blood Negative (NEG) Urine Nitrite Negative (NEG) Urine Bilirubin Negative (NEG) Urine Urobilinogen Dipstick 0.2 mg/dL (0.2 mg/dL) Urine Leukocyte Esterase Moderate (NEG) Urine RBC 0 /HPF (0-2) Urine WBC >40 /HPF (0-4) Urine Squamous Epithelial Cells Few /LPF Urine Bacteria Few /HPF (0-FEW) Urine Mucus Slight /LPF Laboratory Tests 07/28/18 17:50 Laboratory Tests 07/28/18 17:50 (DEONNA CUEVA MD) EKG EKG EKG interpreted by me. EKG at 1721 showed normal sinus rhythm at rate of 71, abnormal left axis deviation, left anterior fascicular block, left ventricular hypertrophy, T-wave abnormalities his lateral leads, no acute ST and T-wave abnormalities. (AMANDA PRUITT MD) Radiology/Procedures Radiology/Procedures [] (AMANDA PRUITT MD) Course & Med Decision Making Course & Med Decision Making Pertinent Labs and Imaging studies are pending. The patient in ER showed 88-year-old female patient with complaining of not feeling good and dizziness. Patient had blood sugar of 240 and hydralazine was ordered. Labs and imaging studies are pending.Sign out given to at 1800 for further evaluation and final disposition. Discussed current findings and plan with patient and family, who acknowledge understanding and agreement. (AMANDA PRUITT MD) Course & Med Decision Making cherelle: exctensive workup was evaluated and added on to. pt has dizziness bp 240, nausea sick to stomach, no chest pain initially. noted improved bp to 160' s after hydralazine. ct head negative. u/s showed gallstone. ct a/p ordered to further evaluate, result noted. IMPRESSION: 1. 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 2. Cholelithiasis less well seen by CT. No CT evidence of acute cholecystitis. 3. Scattered air trapping in the lung bases. Correlate for small airways disease. family is aware of the past imaging finding of cirrhosis and says it has been worked up but is of unclear etiology. lft's really not c/w cirrhosis at this time. noted u/a showing uti, ordered ceftriaxone for this lactate 1.3. on re-evaluation after the ct scan, bp was 215 systolic and patient was having chest pain, we gave nitro the chest pain went away, repeat ekg did show some st depression in the anterior leads i spoke wtih dr chau who agreed with admission and nitro drip for bp and chest pain control. at time of transfer from the ER, the patient was chest pain free, troponins will be cycled in house with cardiology consultation. suspect overall hypertensive urgency and uti. (DEONNA CUEVA MD) Dragon Disclaimer Dragon Disclaimer This electronic medical record was generated, in whole or in part, using a voice recognition dictation system. (AMANDA PRUITT MD) Departure Departure Impression: Primary Impression: Hypertensive urgency Additional Impressions: Nausea Light headedness UTI (urinary tract infection) Disposition: ADMITTED INPATIENT Admitting Physician: Uriel Chau (DEONNA CUEVA MD) Condition: STABLE Referrals: URIEL CHAU MD (PCP) Problem Qualifiers AMANDA PRUITT MD Jul 28, 2018 17:21 DEONNA CUEVA MD Jul 29, 2018 06:13
[2018-07-28] MEDS ORDERED: ONDANSETRON PF 4 MG/2 ML VIAL. IV ONE (17:30)
--- NOTE | 2018-07-28 18:03 | RAD ---
EXAM: CHEST 1 VIEW. HISTORY: Dizziness. COMPARISON: 05/08/2017. FINDINGS: A frontal view of the chest is obtained. There are no confluent infiltrates. There is no pneumothorax or pleural effusion. The heart is not enlarged. Prominence of the right peritracheal stripe is chronic and likely reflect tortuous vasculature. There are chronic right rib fractures. IMPRESSION: 1. No confluent infiltrates. Electronically signed by: Crystal David MD (07/28/2018 6:00 PM) [facility]
[2018-07-28 18:19] LABS: BASO % 0 % (0-3); EOS # 0.2 x10^3/uL (0.0-0.7); EOS % 3 % (0-3); HEMATOCRIT 37.8 % (36.0-47.0); HEMOGLOBIN 12.3 g/dL (12.0-15.5); LYMPH # 1.3 x10^3/uL (1.0-4.8); LYMPH % 21 % (24-48); MEAN CORPUSCULAR HEMOGLOBIN 29 pg (25-35); MEAN CORPUSCULAR HGB CONC 33 g/dL (31-37); MEAN CORPUSCULAR VOLUME 87 fL (79-100); MONO # 0.3 x10^3/uL (0.0-1.1); MONO % 5 % (0-9); NEUT # 4.2 x10^3uL (1.8-7.7); NEUT % 70 % (31-73); PLATELET COUNT 146 x10^3/uL (140-400); RED BLOOD COUNT 4.33 x10^6/uL (3.50-5.40)
[2018-07-28 18:29] LABS: CALCIUM 8.8 mg/dL (8.5-10.1); CREATININE 1.2 mg/dL (0.6-1.0); GFR 42.5; POTASSIUM 4.7 mmol/L (3.5-5.1)
[2018-07-28 18:37] LABS: ALBUMIN 3.7 g/dL (3.4-5.0); ALBUMIN/GLOBULIN RATIO 1.1 (1.0-1.7); MAGNESIUM 1.9 mg/dL (1.8-2.4); TOTAL BILIRUBIN 0.5 mg/dL (0.2-1.0); TOTAL PROTEIN 7.1 g/dL (6.4-8.2)
--- NOTE | 2018-07-28 19:19 | RAD ---
EXAM: CT HEAD WITHOUT CONTRAST. HISTORY: Dizziness. TECHNIQUE: Computed tomography of the head was performed without intravenous contrast. COMPARISON: 05/08/2017. FINDINGS: There is no intracranial hemorrhage. Hypoattenuation within the periventricular white matter indicates mild to moderate chronic microangiopathic change. Prominence of the lateral ventricles and hemispheric sulci indicates mild to moderate atrophy for patient age. The visualized paranasal sinuses appear clear. There are changes of bilateral cataract surgery. The temporal bones are unremarkable. The calvarium reveals no suspicious lesions. IMPRESSION: 1. No acute intracranial findings. 2. 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 *One or more of the following individualized dose reduction techniques were utilized for this examination: 1. Automated exposure control. 2. Adjustment of the mA and/or kV according to patient size. 3. Use of iterative reconstruction technique. Electronically signed by: Crystal David MD (07/28/2018 7:16 PM) [facility]
--- NOTE | 2018-07-28 19:39 | RAD ---
EXAM: RIGHT UPPER QUADRANT ULTRASOUND. HISTORY: Nausea. COMPARISON: None available. FINDINGS: Sonographic evaluation of the right upper quadrant was performed. Hepatic surface nodularity is consistent with cirrhotic change. Hepatic parenchymal echotexture is coarsened. No focal lesions are seen. A small gallstone is noted. There is no pericholecystic fluid or wall thickening. There is no sonographic Gillis sign. The common duct measures 3 mm. The visualized portions of the head and body of the pancreas reveal no abnormality. The right kidney measures 11.3 cm. Cortical thickness and echogenicity are preserved. There is no hydronephrosis. The visualized portions of the abdominal aorta and inferior vena cava are grossly patent and normal in caliber. IMPRESSION: 1. Cholelithiasis without sonographic evidence of acute cholecystitis. 2. Morphologic changes of cirrhosis. Electronically signed by: Crystal David MD (07/28/2018 7:36 PM) [facility]
[2018-07-28 20:23] LABS: BILIRUBIN,URINE NEGATIVE (NEG); CLARITY,URINE CLEAR; COLOR,URINE YELLOW; NITRITE,URINE NEGATIVE (NEG); PROTEIN,URINE NEGATIVE (NEG-TRACE); UROBILINOGEN,URINE 0.2 mg/dL (0.2 mg/dL)
[2018-07-28 20:27] LABS: SQUAMOUS EPITHELIAL CELL,UR FEW /LPF
[2018-07-28 20:28] LABS: BACTERIA,URINE FEW /HPF (0-FEW); RBC,URINE 0 /HPF (0-2); WBC,URINE >40 /HPF (0-4)
[2018-07-28] MEDS ORDERED: IV NORMAL SALINE 1000ML BAG 1,000 ML IV ONE (20:30)
[2018-07-28] MEDS ORDERED: CONTRAST GIVEN. MC PRN (20:30)
[2018-07-28] MEDS ORDERED: IOHEXOL 300 MG/ML 100ML VIAL. IV ONE (20:30)
--- NOTE | 2018-07-28 21:43 | RAD ---
EXAM: CT ABDOMEN/PELVIS WITH CONTRAST. HISTORY: Right upper quadrant pain, cholelithiasis. TECHNIQUE: Computed tomography of the abdomen and pelvis was performed after the intravenous administration of 60 mL Omnipaque 300. COMPARISON: None. FINDINGS: Lung windows through the visualized portions of the bases reveal mild atelectasis and scattered air trapping. Bone windows reveal no suspicious lesions. There are chronic right rib fractures. The appendix is not inflamed. The uterus is surgically absent. There are no pathologically enlarged lymph nodes. There is no small bowel obstruction. Hepatic surface nodularity indicates cirrhotic change. No focal hepatic lesions are seen. There are varices about the gastric cardia. The splenic vein remains patent. There is no ascites. The spleen measures 14.4 cm. The gallstone noted on ultrasound is not well seen. There is no pericholecystic inflammation or biliary dilatation. There is fatty atrophy of the pancreas. There is no ductal dilatation or clear focal lesion. The kidneys are unremarkable. There are no renal or ureteral calculi. IMPRESSION: 1. 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 2. Cholelithiasis less well seen by CT. No CT evidence of acute cholecystitis. 3. Scattered air trapping in the lung bases. Correlate for small airways disease. *One or more of the following individualized dose reduction techniques were utilized for this examination: 1. Automated exposure control. 2. Adjustment of the mA and/or kV according to patient size. 3. Use of iterative reconstruction technique. Electronically signed by: Crystal David MD (07/28/2018 9:40 PM) [facility]
[2018-07-28] MEDS ORDERED: NITROGLYCERIN SUBLINGUAL 0.4 MG BOTTLE OF 25. SL ONE (21:50)
[2018-07-28] MEDS ORDERED: NITROGLYCERIN SUBLINGUAL 0.4 MG BOTTLE OF 25. SL PRN (22:00)
[2018-07-28] MEDS ORDERED: ONDANSETRON PF 4 MG/2 ML VIAL. IV PRN (22:00)
[2018-07-28] MEDS ORDERED: cefTRIAXone IV Push 1 GM VIAL. IVP ONE (22:30)
[2018-07-28] MEDS ORDERED: ASPIRIN CHEWABLE 81 MG TABLET. PO ONE (22:30)
[2018-07-28] MEDS ORDERED: NITROGLYCERIN PREMIX 250 ML IV ONE (22:30)
[2018-07-29] VITALS (20 sets, daily range): BP systolic 116–187; BP diastolic 45–92
--- NOTE | 2018-07-29 01:24 | NUR ---
Patient admission Pt arrived to the unit before this RN arrived. RN took over care from JAMIA Mart. Patient care information guide packet was explained and given to pt. All questions and concerns regarding pt's POC was address and answered. RN spoke to Dr. Awan to verified orders, okay to stop Nitroglycerin drip at this time as pt's blood pressure is stable. Keep pt NPO for now, with sips of water with medications. Pt denies any pain at this time. Pt and daughter verbalized understanding. Pt made comfortable in bed. Will continue to monitor pt closely. Addendum: 07/29/18 at 0222 by MAYRA PEREZ RN Patient care information guide packet was explained to pt's daughter. Pt's daughter verbalized understanding. Vitals remained stable at this time. Pt continue to denies any pain.
[2018-07-29] MEDS: PANTOPRAZOLE 40 MG TABLET.DR. PO SCH (08:15)
[2018-07-29] MEDS: CYANOCOBALAMIN (VITAMIN B-12) 1,000 MCG TABLET. PO SCH (08:16)
[2018-07-29] MEDS: CHOLECALCIFEROL (VITAMIN D3) 1,000 UNIT TABLET PO SCH (08:17)
[2018-07-29] MEDS: LOSARTAN POTASSIUM 50 MG TABLET. PO SCH (08:18)
[2018-07-29] MEDS ORDERED: POLYETHYLENE GLYCOL 3350 17 GM PACKET. PO PRN (09:00)
--- NOTE | 2018-07-29 10:32 | EKG ---
[facility] [address] [place] [address] Test Date: 2018-07-28 Test Time: 17:21:38 Pat Name: ALMA ROSA HAWKINS Department: Room: 115 1 Gender: F Community Outreach Specialist: : 1930 Requested By: AMANDA PRUITT Order Number: [id number] Reading MD: Lionel Alaniz MD Measurements Intervals [place] Rate: 71 P: 0 SD: 218 QRS: -42 QRSD: 124 T: 54 QT: 430 QTc: 473 Interpretive Statements SINUS RHYTHM ABNORMAL LEFT AXIS DEVIATION LEFT ANTERIOR FASCICULAR BLOCK LEFT VENTRICULAR HYPERTROPHY T ABNORMALITY IN HIGH LATERAL LEADS ABNORMAL ECG 1ST DEGREE AVB Electronically Signed On 07-29-2018 11:29:32 CDT by Lionel Alaniz MD
[2018-07-29] MEDS ORDERED: MECLIZINE HCL 12.5 MG TABLET. PO PRN (10:45)
--- NOTE | 2018-07-29 11:35 | PDOC2 ---
CARDIOLOGY CONSULT NOTE CHEIF COMPLAINT: Elevated BP HPI: 88 y.o woman presenting with uncontrolled BP. She apparently felt dizzy and got scared and presented to the ER. PCP thinks this may be related to inner ear stuff. Mild chest pain but no dyspnea or syncope. No palpitations. At baseline she is sedentary. No other acute issues. PMHX: HTN Dyslipidemia Prior admission in 2013 with normal stress test. SOCHX: No alcohol, tob or illicit drug use. FAMHX: NC CURRENT MEDS: Current Medications Medications (Trade) Dose Ordered Sig/Christiano Start Time Stop Time Status Last Admin Dose Admin Aspirin (Children'S Aspirin) 324 mg 1X ONCE 07/28/18 22:30 07/28/18 22:31 DC 07/28/18 21:55 324 MG Ceftriaxone Sodium (Rocephin) 1 gm 1X ONCE 07/28/18 22:30 07/28/18 22:31 DC 07/28/18 22:17 1 GM Cyanocobalamin (Vitamin B-12) 1,000 mcg DAILY 07/29/18 09:00 07/29/18 08:16 1,000 MCG Hydralazine HCl (Apresoline Inj) 10 mg 1X ONCE 07/28/18 21:15 07/28/18 21:16 DC 07/28/18 21:06 10 MG Info (CONTRAST GIVEN -- Rx MONITORING) 1 each PRN DAILY PRN 07/28/18 20:30 07/30/18 20:29 Iohexol (Omnipaque 300 Mg/ml) 60 ml 1X ONCE 07/28/18 20:30 07/28/18 20:31 DC 07/28/18 20:34 60 ML Losartan Potassium (Cozaar) 100 mg DAILY 07/29/18 09:00 07/29/18 08:18 100 MG Meclizine HCl (Antivert) 25 mg PRN Q6HRS PRN 07/29/18 10:45 Nitroglycerin (Nitrostat) 0.4 mg STK-MED ONCE 07/28/18 21:50 07/28/18 21:51 DC Nitroglycerin/ Dextrose 250 ml @ 0 mls/hr 1X ONCE 07/28/18 22:30 07/28/18 22:31 DC 07/28/18 22:33 1.5 MLS/HR Ondansetron HCl (Zofran) 4 mg PRN Q8HRS PRN 07/28/18 22:00 07/29/18 21:59 Pantoprazole Sodium (Protonix) 40 mg DAILYAC 07/29/18 07:30 07/29/18 08:15 40 MG Polyethylene Glycol (miraLAX PACKET) 17 gm PRN DAILY PRN 07/29/18 09:00 Simvastatin (Zocor) 10 mg QHS 07/29/18 21:00 Sodium Chloride 1,000 ml @ 1,000 mls/hr 1X ONCE 07/28/18 20:30 07/28/18 21:29 DC 07/28/18 21:05 1,000 MLS/HR Vitamin D (Vitamin D3) 1,000 unit DAILY 07/29/18 09:00 07/29/18 08:17 1,000 UNIT ALLERGIES: Allergies Coded Allergies Type Severity Reaction Last Updated Verified oxycodone Adverse Reaction Intermediate nausea 08/10/13 Yes ROS: Negative for 01/28 systems reviewed unless otherwise noted above in HPI PHYSICAL EXAM: Vital Signs: Vital Signs Date Time Temp Pulse Resp B/P (MAP) Pulse Ox O2 Delivery O2 Flow Rate FiO2 07/29/18 10:23 64 18 154/59 (90) 99 Nasal Cannula 3.0 07/29/18 07:00 97.9 97.9 I & O Intake and Output 07/29/18 07:00 Intake Total 0 ml Output Total 350 ml Balance -350 ml Intake Oral 0 ml Output Urine Total 350 ml Physical Exam: GEN.: No apparent distress. Alert and oriented. HEENT: Head is normocephalic, atraumatic NECK: Supple. LUNGS: Clear to auscultation. HEART: RRR, S1, S2 present. Peripheral pulses intact ABDOMEN: Soft, nontender. Positive bowel sounds. EXTREMITIES: Without any cyanosis. NEUROLOGIC: Normal speech, normal tone PSYCHIATRIC: Normal affect, normal mood. SKIN: No ulcerations DIAGNOSTIC TESTING: EKG w/o ischemic changes. LVH. Trop negative Labs otherwise unremarkable. CXR unremarkable ASSESSMENT: 1. Hypertensive urgency - etiology unclear. Now improved. PLAN: 1. Continue home losartan. Chest pain likely due to BP. 2. Will add low dose amlodipine. 3. She follows at [facility]. F/u with primary cardio after discharge. Thanks. Pls call with questions. MELISSA BOWERS MD Jul 29, 2018 11:35
--- NOTE | 2018-07-29 11:59 | HP ---
ADMIT DATE: CHIEF COMPLAINT AND HISTORY OF PRESENT ILLNESS: This 88-year-old white female, patient of Dr. Uriel Awan, presented to the Emergency Room on the day of admission with dizziness. Upon questioning, even though she is not the best historian, it sounds like it was more vertiginous in nature with associated nausea and the need to vomit, but she did not. In the Emergency Room, she was found to have accelerated hypertension, developed some chest pain for which she was given nitro as well as blood pressure medicine and admitted for the chest pain. PAST MEDICAL HISTORY: Remarkable for hyperlipidemia, GERD, hypertension, according to her history of diabetes for which she used to take medicines, but she no longer does. She has a history of torticollis. PAST SURGICAL HISTORY: Remarkable for total knee replacement. MEDICATIONS: Brought with the patient, listed on the computer and have been addressed. ALLERGIES: SHE IS ALLERGIC TO OXYCODONE. SOCIAL HISTORY: She is nonsmoker, nondrinker, does not use drugs. , lives at home with her , has a very supportive family. FAMILY HISTORY: Noncontributory. REVIEW OF SYSTEMS: As mentioned above. PHYSICAL EXAMINATION: GENERAL: She is a well-developed, well-nourished white female, in no acute distress. VITAL SIGNS: Stable. She is afebrile. Blood pressures are much better. HEAD, EYES, EARS, NOSE AND THROAT: Unremarkable. She does wear glasses. She does have bilateral nystagmus present on exam. NECK: Supple, no adenopathy or thyromegaly. CHEST: Clear to auscultation and percussion. HEART: Regular rate and rhythm without S3, S4, or murmur. ABDOMEN: Soft, nontender, without hepatosplenomegaly or masses. EXTREMITIES: Without cyanosis, clubbing, edema. NEUROLOGIC: Intact. LABORATORY DATA: At the time of admission revealed a CBC that is essentially unremarkable. Chem profile is likewise essentially unremarkable. Her initial two troponins were negative and went up to 0.02 since that point, which is likely related to the blood pressure. Blood sugars have been anywhere from 154 on admission to 112 this morning. Urinalysis on admission shows greater than 40 white blood cells, but few bacteria. She has leukocyte esterase positive moderately and a urine culture will be obtained, and she was given one dose of Rocephin in the Emergency Room on admission. IMAGING: Includes a head CT, chest x-ray, ultrasound of the abdomen, and abdomen and pelvis CT showing some evidence of cirrhosis and some cholelithiasis without cholecystitis. IMPRESSION: 1. Vertigo on admission, likely due to labyrinthitis. 2. Hypertensive urgency with chest pain. 3. Possible urinary tract infection. PLAN: Continue present care. We will add meclizine to her regimen, ask Neurology to see her. Cardiology has been consulted and the patient will be monitored, managed and treated appropriately. TONY ACUÑA MD DR: BI/davon JOB#: [id number] / [id number] URIEL Irene MD
[2018-07-29] MEDS ORDERED: hydrALAZINE 20 MG/ML VIAL. IVP PRN (16:30)
[2018-07-29] MEDS ORDERED: amLODIPine BESYLATE 5 MG TABLET PO ONE (16:30)
[2018-07-29] MEDS ORDERED: SIMVASTATIN 10 MG TABLET PO SCH (21:00)
[2018-07-30 03:51] VITALS: BP 150/54
[2018-07-30 07:00] VITALS: BP 153/58
--- NOTE | 2018-07-30 07:46 | EKG ---
[facility] [address] [place] [address] Test Date: 2018-07-28 Test Time: 21:43:18 Pat Name: ALMA ROSA HAWKINS Department: Room: 250 1 Gender: F Load Dropper: : 1930 Requested By: DEONNA CUEVA Order Number: [id number] Reading MD: Tarun Griffiths Measurements Intervals [place] Rate: 96 P: 85 [place]: 186 QRS: -49 QRSD: 122 T: 98 QT: 392 QTc: 496 Interpretive Statements SINUS RHYTHM ABNORMAL LEFT AXIS DEVIATION LEFT ANTERIOR FASCICULAR BLOCK LVH WITH REPOLARIZATION ABNORMALITY QRS(T) CONTOUR ABNORMALITY CONSIDER ANTEROLATERAL MYOCARDIAL DAMAGE ABNORMAL ECG Electronically Signed On 08-06-2018 12:43:29 CDT by Tarun Griffiths
[2018-07-30] MEDS: CYANOCOBALAMIN (VITAMIN B-12) 1,000 MCG TABLET. PO SCH (08:29)
[2018-07-30] MEDS: LOSARTAN POTASSIUM 50 MG TABLET. PO SCH (08:31)
[2018-07-30] MEDS: CHOLECALCIFEROL (VITAMIN D3) 1,000 UNIT TABLET PO SCH (08:31)
[2018-07-30] MEDS: PANTOPRAZOLE 40 MG TABLET.DR. PO SCH (08:31)
[2018-07-30 08:40] VITALS: BP 153/58
--- NOTE | 2018-07-30 08:45 | PDOC ---
Provider Note Provider Note [id number] URIEL CHAU MD Jul 30, 2018 08:45
[2018-07-30] MEDS ORDERED: amLODIPine BESYLATE 5 MG TABLET PO SCH (09:00)
--- NOTE | 2018-07-30 09:12 | NUR ---
IP: Pt is mrsa screen + requiring contact precautions.
[2018-07-30] MEDS ORDERED: AMLO2.5T5 PO (10:29)
--- NOTE | 2018-07-30 10:45 | NUR ---
Discharge Note Reviewed all discharge instructions with patient and family. Verbalized understanding. Dr. Awan sent script to pharmacy.
--- NOTE | 2018-07-30 11:53 | PDOC ---
PROGRESS NOTES Assessment Problems Medical Problems: (1) Hypertensive urgency Status: Acute (2) Light headedness Status: Acute (3) Nausea Status: Acute Hypertensive encephalopathy, resolved Plan Okay for discharge (already done) Discussed with daughter Subjective No complaints Objective Vital Signs Date Time Temp Pulse Resp B/P (MAP) Pulse Ox O2 Delivery O2 Flow Rate FiO2 07/30/18 08:40 66 153/58 07/30/18 07:00 98.1 18 95 Room Air 98.1 07/29/18 23:59 3.0 Intake and Output 07/30/18 07:00 Intake Total 280 ml Output Total 1400 ml Balance -1120 ml Intake Oral 280 ml Output Urine Total 1400 ml # Voids 2 PHYSICAL EXAM Alert. Oriented to time, place and person. PERRL. EOMI. CN: no focal findings. Muscle tone: normal. Muscle strength: 5/5 DTR: 2+ Plantar reflex: flexor Gait: senile. Sensory exam: no abnormal findings. No cerebellar signs elicited. Review of Relevant I have reviewed the following items yovani (where applicable) has been applied. Labs Laboratory Tests Test 07/28/18 17:50 07/28/18 20:15 07/28/18 22:00 07/29/18 00:40 White Blood Count 6.0 x10^3/uL (4.0-11.0) Red Blood Count 4.33 x10^6/uL (3.50-5.40) Hemoglobin 12.3 g/dL (12.0-15.5) Hematocrit 37.8 % (36.0-47.0) Mean Corpuscular Volume 87 fL (79-100) Mean Corpuscular Hemoglobin 29 pg (25-35) Mean Corpuscular Hemoglobin Concent 33 g/dL (31-37) Red Cell Distribution Width 14.0 % (11.5-14.5) Platelet Count 146 x10^3/uL (140-400) Neutrophils (%) (Auto) 70 % (31-73) Lymphocytes (%) (Auto) 21 % (24-48) Monocytes (%) (Auto) 5 % (0-9) Eosinophils (%) (Auto) 3 % (0-3) Basophils (%) (Auto) 0 % (0-3) Neutrophils # (Auto) 4.2 x10^3uL (1.8-7.7) Lymphocytes # (Auto) 1.3 x10^3/uL (1.0-4.8) Monocytes # (Auto) 0.3 x10^3/uL (0.0-1.1) Eosinophils # (Auto) 0.2 x10^3/uL (0.0-0.7) Basophils # (Auto) 0.0 x10^3/uL (0.0-0.2) Sodium Level 138 mmol/L (136-145) Potassium Level 4.7 mmol/L (3.5-5.1) Chloride Level 103 mmol/L (98-107) Carbon Dioxide Level 26 mmol/L (21-32) Anion Gap 9 (6-14) Blood Urea Nitrogen 26 mg/dL (7-20) Creatinine 1.2 mg/dL (0.6-1.0) Estimated GFR (Cockcroft-Gault) 42.5 BUN/Creatinine Ratio 22 (6-20) Glucose Level 154 mg/dL (70-99) Calcium Level 8.8 mg/dL (8.5-10.1) Magnesium Level 1.9 mg/dL (1.8-2.4) Total Bilirubin 0.5 mg/dL (0.2-1.0) Aspartate Amino Transf (AST/SGOT) 38 U/L (15-37) Alanine Aminotransferase (ALT/SGPT) 32 U/L (14-59) Alkaline Phosphatase 106 U/L (46-116) Creatine Kinase 63 U/L (26-192) Troponin I Quantitative < 0.017 ng/mL (0.000-0.055) < 0.017 ng/mL (0.000-0.055) 0.023 ng/mL (0.000-0.055) YJ-Zgq-F-Type Natriuretic Peptide 442 pg/mL (0-449) Total Protein 7.1 g/dL (6.4-8.2) Albumin 3.7 g/dL (3.4-5.0) Albumin/Globulin Ratio 1.1 (1.0-1.7) Lipase 56 U/L (73-393) Urine Collection Type Unknown Urine Color Yellow Urine Clarity Clear Urine pH 6.0 Urine Specific [place] 1.020 Urine Protein Negative mg/dL (NEG-TRACE) Urine Glucose (UA) Negative mg/dL (NEG) Urine Ketones (Stick) Negative mg/dL (NEG) Urine Blood Negative (NEG) Urine Nitrite Negative (NEG) Urine Bilirubin Negative (NEG) Urine Urobilinogen Dipstick 0.2 mg/dL (0.2 mg/dL) Urine Leukocyte Esterase Moderate (NEG) Urine RBC 0 /HPF (0-2) Urine WBC >40 /HPF (0-4) Urine Squamous Epithelial Cells Few /LPF Urine Bacteria Few /HPF (0-FEW) Urine Mucus Slight /LPF Lactic Acid Level 1.3 mmol/L (0.4-2.0) Test 07/29/18 03:14 07/29/18 04:00 07/29/18 09:02 Nasal Screen MRSA (PCR) Positive (Negative) Troponin I Quantitative 0.020 ng/mL (0.000-0.055) Glucose (Fingerstick) 112 mg/dL (70-99) Microbiology 07/28/18 Blood Culture - Preliminary, Resulted NO GROWTH AFTER 1 DAY Medications Current Medications Hydralazine HCl (Apresoline Inj) 10 mg 1X ONCE IVP Last administered on at 17:34; Start 07/28/18 at 17:15; Stop 07/28/18 at 17:16; Status DC Ondansetron HCl (Zofran) 4 mg 1X ONCE IV Last administered on 07/28/18at 17:35 ; Start 07/28/18 at 17:30; Stop 07/28/18 at 17:31; Status DC Sodium Chloride 1,000 ml @ 1,000 mls/hr 1X ONCE IV Last administered on at 21:05; Start 07/28/18 at 20:30; Stop 07/28/18 at 21:29; Status DC Iohexol (Omnipaque 300 Mg/ml) 60 ml 1X ONCE IV Last administered on 07/28/18at 20:34; Start 07/28/18 at 20:30; Stop 07/28/18 at 20:31; Status DC Info (CONTRAST GIVEN -- Rx MONITORING) 1 each PRN DAILY PRN MC SEE COMMENTS; Start 07/28/18 at 20:30; Stop 07/30/18 at 11:10; Status DC Hydralazine HCl (Apresoline Inj) 10 mg 1X ONCE IVP Last administered on at 21:06; Start 07/28/18 at 21:15; Stop 07/28/18 at 21:16; Status DC Nitroglycerin (Nitrostat) 0.4 mg PRN Q5MIN PRN SL CHEST PAIN Last administered on 07/28/18at 21:54; Start 07/28/18 at 22:00; Stop 07/30/18 at 11:10; Status DC Aspirin (Children'S Aspirin) 324 mg 1X ONCE PO Last administered on 07/28/18 21:55; Start 07/28/18 at 22:30; Stop 07/28/18 at 22:31; Status DC Ceftriaxone Sodium (Rocephin) 1 gm 1X ONCE IVP Last administered on 07/28/18 22:17; Start 07/28/18 at 22:30; Stop 07/28/18 at 22:31; Status DC Nitroglycerin (Nitrostat) 0.4 mg STK-MED ONCE SL ; Start 07/28/18 at 21:50; Stop 07/28/18 at 21:51; Status DC Nitroglycerin/ Dextrose 250 ml @ 0 mls/hr 1X ONCE IV Last administered on 07/28at 22:33; Start 07/28/18 at 22:30; Stop 07/28/18 at 22:31; Status DC Ondansetron HCl (Zofran) 4 mg PRN Q8HRS PRN IV NAUSEA/VOMITING 1st choice; Start 07/28/18 at 22:00; Stop 07/29/18 at 21:59; Status DC Vitamin D (Vitamin D3) 1,000 unit DAILY PO Last administered on 07/30/18 08:31 ; Start 07/29/18 at 09:00; Stop 07/30/18 at 11:10; Status DC Losartan Potassium (Cozaar) 100 mg DAILY PO Last administered on 07/30/18 08: 31; Start 07/29/18 at 09:00; Stop 07/30/18 at 11:10; Status DC Cyanocobalamin (Vitamin B-12) 1,000 mcg DAILY PO Last administered on 08:29; Start 07/29/18 at 09:00; Stop 07/30/18 at 11:10; Status DC Pantoprazole Sodium (Protonix) 40 mg DAILYAC PO Last administered on 4/15/19at 08:31; Start 07/29/18 at 07:30; Stop 07/30/18 at 11:10; Status DC Polyethylene Glycol (miraLAX PACKET) 17 gm PRN DAILY PRN PO CONSTIPATION 1ST CHOICE; Start 07/29/18 at 09:00; Stop 07/30/18 at 11:10; Status DC Simvastatin (Zocor) 10 mg QHS PO Last administered on 07/29/18at 20:59; Start at 21:00; Stop 07/30/18 at 11:10; Status DC Meclizine HCl (Antivert) 25 mg PRN Q6HRS PRN PO DIZZINESS; Start 07/29/18 at 10 :45; Stop 07/30/18 at 08:48; Status DC Amlodipine Besylate (Norvasc) 5 mg 1X ONCE PO Last administered on 07/29/18at 16:40; Start 07/29/18 at 16:30; Stop 07/29/18 at 16:31; Status DC Hydralazine HCl (Apresoline Inj) 10 mg PRN Q4HRS PRN IVP ELEVATED BP, SEE COMMENTS; Start 07/29/18 at 16:30; Stop 07/30/18 at 11:10; Status DC Amlodipine Besylate (Norvasc) 2.5 mg DAILY PO Last administered on 07/30/18at 08 :40; Start 07/30/18 at 09:00; Stop 07/30/18 at 11:10; Status DC Active Scripts Active Reported Amlodipine Besylate 2.5 Mg Tablet 2.5 Mg PO DAILY B-12 (Cyanocobalamin (Vitamin B-12)) 1,000 Mcg Tablet.er 1,000 Mcg PO DAILY Miralax (Polyethylene Glycol 3350) 17 Gm Powd.pack 1 Packet PO PRN DAILY PRN Vitamin D (Cholecalciferol (Vitamin D3)) 1,000 Unit Tablet 1,000 Unit PO DAILY Simvastatin 20 Mg Tablet 10 Mg PO QHS Losartan Potassium 50 Mg Tablet 100 Mg PO DAILY Omeprazole 20 Mg Capsule.dr 20 Mg PO DAILY Vitals/I & O Vital Sign - Last 24 Hours 07/29/18 07/29/18 07/29/18 07/29/18 12:00 12:00 13:35 15:00 Temp 98.6 98.3 98.6 98.3 Pulse 63 64 63 Resp 18 16 18 B/P (MAP) 151/71 (97) 151/64 (93) 134/75 (94) Pulse Ox 95 94 O2 Delivery Room Air Room Air Room Air Room Air 07/29/18 07/29/18 07/29/18 07/29/18 16:10 16:40 17:28 18:54 Temp 98.0 98.0 Pulse 71 73 75 73 Resp 18 16 B/P (MAP) 187/75 (112) 187/75 152/65 (94) 149/85 (106) Pulse Ox 93 O2 Delivery Room Air 07/29/18 07/29/18 07/29/18 07/30/18 20:01 22:57 23:59 03:51 Temp 98.1 98.1 97.9 98.1 98.1 97.9 Pulse 64 64 61 Resp 16 16 B/P (MAP) 146/45 (78) 146/45 (78) 150/54 (86) Pulse Ox 94 94 92 O2 Delivery Room Air Room Air Room Air Room Air O2 Flow Rate 3.0 3.0 07/30/18 07/30/18 07/30/18 07:00 08:31 08:40 Temp 98.1 98.1 Pulse 66 66 66 Resp 18 B/P (MAP) 153/58 (89) 153/58 153/58 Pulse Ox 95 O2 Delivery Room Air Intake and Output 07/29/18 07/29/18 07/30/18 15:00 23:00 07:00 Intake Total 180 ml 100 ml Output Total 1200 ml 200 ml Balance -1200 ml -20 ml [address] HEAD WITHOUT CONTRAST. There is no intracranial hemorrhage. Hypoattenuation within the periventricular white matter indicates mild to moderate chronic microangiopathic change. Prominence of the lateral ventricles and hemispheric sulci indicates mild to moderate atrophy for patient age. The visualized paranasal sinuses appear clear. There are changes of bilateral cataract surgery. The temporal bones are unremarkable. The calvarium reveals no suspicious lesions. IMPRESSION: 1. No acute intracranial findings. 2. 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 AMBER TAYLOR MD Jul 30, 2018 11:53
--- NOTE | 2018-07-30 13:35 | CONS ---
DATE OF CONSULTATION: 07/29/2018 REFERRING PHYSICIAN: Dr. Alvares REASON FOR CONSULTATION: Dizziness. HISTORY OF PRESENT ILLNESS: The patient is an 88-year-old woman admitted to the Emergency Room after she had felt dizzy and poorly for the last several days. She was not feeling a spinning, like the room was moving around, but rather she just felt poorly with nausea and vomiting. She could not actually vomit, only felt like she had the need to vomit. She was found to have critically ill, accelerated high blood pressure. She did receive nitroglycerin, which gave her severe headache and made her start to shake. As the blood pressures come under better control, all symptoms have fully resolved. She feels back to normal. She has never had a history of seizure. She does not normally have migraine headaches or shaking. She does not normally feel dizzy. PAST MEDICAL HISTORY: 1. Hyperlipidemia. 2. Gastroesophageal reflux disease. 3. Hypertension. 4. Diabetes. 5. History of torticollis. 6. Total knee replacement. ALLERGIES: OXYCODONE. MEDICATIONS: Medicines prior to admission vitamin D3 1000 units, vitamin B12 1000 mcg, losartan 100 mg, omeprazole 20 mg, polyethylene glycol, and simvastatin 20 mg. FAMILY HISTORY: Noncontributory. SOCIAL HISTORY: She does not smoke tobacco, drink alcohol or use recreational drugs. She is and lives with her . Normally, she gets around in the house just by grabbing the rosario. When she is out she uses her cane. REVIEW OF SYSTEMS: She had a headache after nitroglycerin. She has had no change in vision. She has diminished hearing. She has been able to chew and swallow. She has not had shortness of breath. She did have chest pain, which has resolved. She does not have abdominal pain. She does have bone and joint pain, especially the right knee. She has not had fever or rash. She has had trouble with constipation and was using MiraLax daily and then developed some loose stools with some incontinence of stool. She has been backing off on the dosage. She does not have any genitourinary complaint. She does not complain of numbness. Her balance is a little off. She does not have any psychiatric concerns. She does not complain of excessive bruising, bleeding or swelling. PHYSICAL EXAMINATION: VITAL SIGNS: Blood pressure was 152/65, pulse 75, respirations 18, temperature 98.3 degrees Fahrenheit. Oximetry was 94% on room air. It appears that on admission, her blood pressure was 214/86. Her weight was 220 pounds, height 63 inches with a calculated body mass index of 39. GENERAL: She was alert, awake and cooperative. Speech was fluent and clear. She had a good fund of recent and remote knowledge. Attention and concentration was intact. She appeared well groomed and well nourished. She was fully oriented. NEUROLOGIC: Examination of the cranial nerves revealed visual alfonso were full to confrontation. Extraocular movements were intact. The eyes were conjugate. Pursuit movements were smooth and saccadic eye movements were without dysmetria. Pupils were 3 mm and reactive. Funduscopic exam did not reveal papilledema. There were spontaneous venous pulsations present bilaterally. Facial sensation was intact. The muscles of mastication and facial expression were powerful symmetrically. Hearing was intact to finger rub. The palate arched symmetrically and the tongue was midline with full range of motion. Sternocleidomastoid and trapezius were powerful. Muscle bulk and tone was normal. There was no arm or leg drift. Power was full and symmetric. She did have pain in her legs, which limited or made her grunt, but she still managed to exhibit good power. Reflexes were 2/4 and symmetric in the upper extremities and knees, but absent at the ankles bilaterally. Knee reflexes were diminished at 1/4. The toes were downgoing. Coordination testing with [id number], [id number], fine motor and rapid alternating movements was well performed. Sensory examination was intact to pain, light touch, proprioception, graphesthesia, cold thermal and vibration. There was a slight amount of distal sensory shading in the feet. There was no extinction to double simultaneous stimulation. Gait was of a slightly broad base and was steady when she used her cane. With balance support, she could stand on heels or toes. Romberg stance was negative. NECK: Auscultation of the carotid arteries did not reveal a bruit. CARDIOVASCULAR: Heart rhythm is regular without a murmur. EXTREMITIES: Peripheral pulses were symmetric in the hands and feet. There was no edema or cyanosis. She had enlarged legs and feet, but I think this is due to her obesity. LABORATORY AND DIAGNOSTIC DATA: Review of laboratory data: CBC revealed a normal white blood cell count, hemoglobin, hematocrit and platelet count. Chemistries revealed most recent fingerstick glucose was 212. Electrolytes were normal. BUN was 26, creatinine 1.2 with a calculated GFR of 42.5. Glucose was 154. Calcium and magnesium were normal. SGOT was elevated at 38. Lipase was not elevated. BNP was 442. Troponin was not elevated. This was measured on 3 occasions and remained normal range. Urinalysis revealed moderate leukocyte esterase, greater than 40 white blood cells, few squamous epithelial cells and a few bacteria. Nasal screen MRSA was positive. CT scan of the brain was performed 07/28/2018 and revealed no acute intracranial process. There was mild atrophy and chronic small vessel disease. IMPRESSION: The patient is a very pleasant 88-year-old woman who came in with accelerated hypertension, dizziness, nausea with inability to vomit. These symptoms have all resolved. She also developed chest pain, which has resolved. She developed a headache after nitro which is not unusual. She developed shaking which seemed to occur after the nitro and associated with not eating for 2 days and being stressed. This was not seizure activity. Essentially, she has minor peripheral neuropathy, but otherwise a normal neurologic examination. RECOMMENDATIONS: Further neurologic investigation is not needed at this time. I would be happy to reevaluate should new neurologic symptoms arise. ANGELO DAVIDSON MD DR: SPARKLE/davon JOB#: [id number] / [id number]
--- NOTE | 2018-07-30 18:09 | DS ---
DATE OF DISCHARGE: 07/30/2018 HOSPITAL SUMMARY: An 88-year-old white female who came in with predominantly frontal headache and very high blood pressure and some chest discomfort. Cardiac enzymes showed no injury. Chemistry profile and CBC were unremarkable as was EKG, CT head and chest x-ray. Amlodipine was added after nitroglycerin drip was stopped and the blood pressure has been in good control and she is comfortable to be followed as an outpatient at this point. FINAL DIAGNOSES: 1. Hypertensive urgency. 2. Headache, likely secondary to hypertension. OPERATIONS, PROCEDURES, COMPLICATIONS: None. CONSULTATION: Dr. Alaniz. DISPOSITION: We will add amlodipine 2.5 mg daily to the losartan 100 mg that she takes now. Office followup with Dr. Awan in [address] Carlos as needed for cardiac history. Low salt intake. Prognosis is good. URIEL AWAN MD DR: JESSIE/dvaon JOB#: [id number] / [id number]
== END 2018-07-30 11:09 | disposition home or self-care (01) | DRG 305 ==
LOC: ER 16:46 → 1 WEST ICU 21:15 → 2 SOUTH 07-29 14:15
PROVIDERS: ADMIT Family Medicine; ATTEND Family Medicine
DX: I16.0 Hypertensive urgency (principal); N39.0 Urinary tract infection, site not specified; I67.4 Hypertensive encephalopathy; E11.42 Type 2 diabetes mellitus with diabetic polyneuropathy; E78.00 Pure hypercholesterolemia, unspecified; E78.5 Hyperlipidemia, unspecified; I10 Essential (primary) hypertension; K21.9 Gastro-esophageal reflux disease without esophagitis; Z96.659 Presence of unspecified artificial knee joint; Z88.8 Allergy status to other drugs, medicaments and biological substances; Z79.899 Other long term (current) drug therapy; Z79.4 Long term (current) use of insulin; H83.09 Labyrinthitis, unspecified ear
CPT/HCPCS: 36415; 70450; 71045; 74177; 76705; 80053; 81001; 82550; 82962; 83605; 83690; 83735; 83880; 84484; 85025; 87040; 87086; 87641; 93005; 96374; 96375; J0360; J0696; J2405; J3490; J7030; Q9967; 99285-25

== ENCOUNTER → 2018-09-17 | Outpatient (CLI) | payer BC ==
[~2018-09-17] MED LIST changes: +AMLO2.5T5 PO
--- NOTE | 2018-09-17 17:13 | KCIC ---
EXAM: Lumbar spine, 5 views; pelvis and right hip, 3 views. HISTORY: Pain. Fall. COMPARISON: 01/25/2018. FINDINGS: Lumbar spine: 5 views lumbar spine are obtained. There is a mild chronic appearing superior endplate depression at L3. There is no significant listhesis. There is degenerative endplate remodeling and anterior osteophytosis at the lower thoracic and upper and mid lumbar levels. There is disc space narrowing and facet arthropathy predominantly at the lumbosacral junction. There is minimal scoliosis. Pelvis and right hip: A frontal view the pelvis and 2 views the right hip are obtained. There is no acute fracture, dislocation or subluxation. There is mild bilateral hip osteoarthritis. The sacroiliac joints are intact. IMPRESSION: 1. Mild chronic appearing superior endplate compression deformity at L3. This is similar compared to the prior study. 2. Multilevel degenerative change throughout the thoracic and lumbar spine, described above. 3. Bilateral hip osteoarthritis. Electronically signed by: Humera Carcamo MD (09/17/2018 5:10 PM) [facility]
--- NOTE | 2018-09-17 17:45 | KCIC ---
EXAM: KNEE BILAT 3V. HISTORY: Fall, bilateral knee pain. COMPARISON: 05/02/2018. FINDINGS: On the left, there are changes of medial compartmental arthroplasty. Osteopenia is moderate. No fractures are identified. There is a small joint effusion. The patellofemoral compartmental joint space is likely at least mildly narrowed. The lateral compartmental joint space is preserved. On the right, there are moderate osteophytes along the medial compartment with only mild joint space narrowing. 3 small loose bodies are seen along the medial aspect of the medial femoral condyle. There are smaller osteophytes along the lateral and patellofemoral compartments. No fractures are identified. There is no joint effusion. IMPRESSION: 1. No fracture. 2. Left medial compartmental arthroplasty in expected alignment. 3. Mild osteoarthritis on the right greater than left as above. Electronically signed by: Crystal David MD (09/17/2018 5:43 PM) [facility]
== END | disposition home or self-care (01) ==
LOC: KCIC 14:38
PROVIDERS: ATTEND Physician Assistant Medical
DX: M47.815 Spondylosis without myelopathy or radiculopathy, thoracolumbar region (principal); M16.0 Bilateral primary osteoarthritis of hip; M17.0 Bilateral primary osteoarthritis of knee; M43.8X6 Other specified deforming dorsopathies, lumbar region; M48.07 Spinal stenosis, lumbosacral region; M41.87 Other forms of scoliosis, lumbosacral region; M25.462 Effusion, left knee; M85.88 Other specified disorders of bone density and structure, other site; M25.761 Osteophyte, right knee; M23.41 Loose body in knee, right knee
CPT/HCPCS: 72110; 73502; 73562

== ENCOUNTER 2018-10-30 | Emergency (ER) | payer BC ==
[~2018-10-30] VITALS: Ht 160 cm; Wt 91.6 kg
[2018-10-30] MEDS ORDERED: ONDANSETRON PF 4 MG/2 ML VIAL. IV ONE ×2 (00:15→02:30)
[2018-10-30] MEDS ORDERED: IV NORMAL SALINE 500ML BAG 500 ML IV ONE ×2 (00:15→02:30)
[2018-10-30 00:35] LABS: BASO % 1 % (0-3); EOS # 0.2 x10^3/uL (0.0-0.7); EOS % 3 % (0-3); HEMATOCRIT 33.1 % (36.0-47.0); LYMPH # 1.6 x10^3/uL (1.0-4.8); LYMPH % 26 % (24-48); MEAN CORPUSCULAR HEMOGLOBIN 29 pg (25-35); MEAN CORPUSCULAR HGB CONC 33 g/dL (31-37); MEAN CORPUSCULAR VOLUME 88 fL (79-100); MONO # 0.5 x10^3/uL (0.0-1.1); MONO % 8 % (0-9); NEUT # 3.8 x10^3/uL (1.8-7.7); NEUT % 63 % (31-73); PLATELET COUNT 159 x10^3/uL (140-400); RED BLOOD COUNT 3.75 x10^6/uL (3.50-5.40); WHITE BLOOD COUNT 6.1 x10^3/uL (4.0-11.0)
[2018-10-30 00:47] LABS: CALCIUM 8.9 mg/dL (8.5-10.1); CREATININE 1.2 mg/dL (0.6-1.0); GFR 42.5; POTASSIUM 4.1 mmol/L (3.5-5.1)
[2018-10-30 00:52] LABS: ALBUMIN 3.4 g/dL (3.4-5.0); TOTAL BILIRUBIN 0.4 mg/dL (0.2-1.0); TOTAL PROTEIN 6.8 g/dL (6.4-8.2)
--- NOTE | 2018-10-30 01:16 | PHYS DOC ---
Past Medical History Past Medical History: GERD, High Cholesterol, Hypertension, Other Additional Past Medical Histor: torticollus Past Surgical History: Hysterectomy, Knee Replacement Additional Past Surgical Histo: Left Knee Alcohol Use: None Drug Use: None Adult General Chief Complaint Chief Complaint: WEAKNESS/GENERALIZED HPI HPI Patient is a 88 year old [female] who presents with [nausea]. Pt reports an abrupt onset of nausea at 21:30 15 followed by "endless belching." Pt denies having any abdominal pain or any episodes of vomiting. She reports eating a pulled pork sandwich around 1830 today, but multiple other family members ate said sandwich and are asymptomatic. The only other symptoms she reports is a "slight feeling of lightheadedness." Her nausea and lightheadedness are not worsened by anything the pt can think of. She has a history of GERD and pt re ports a multi-year history of taking multiple naproxen a day for pain. She was recently (10/19/18) started on 25 mg Levothyroxine for subclinical hypothyroidism and she denies any side effects of this new medication. She denies chest pain, chest pressure, shortness of breath, cough, fever/chills, diarrhea, constipation, or a change in bowel/bladder habits. Review of Systems Review of Systems Constitutional: Denies fever or chills Eyes: Denies change in visual acuity, redness, or eye pain HENT: Denies nasal congestion or sore throat Respiratory: Denies cough or shortness of breath Cardiovascular: No additional information not addressed in HPI GI: Denies abdominal pain, vomiting, bloody stools or diarrhea [Admits Nausea and belching] : Denies dysuria or hematuria Musculoskeletal: [Admits long history of joint pain] Integument: Denies rash or skin lesions Neurologic: Denies headache, focal weakness or sensory changes Endocrine: Denies polyuria or polydipsia All other systems were reviewed and found to be within normal limits, except as documented in this note. Current Medications Current Medications Current Medications Medications (Trade) Dose Ordered Sig/Christiano Start Time Stop Time Status Last Admin Dose Admin Ceftriaxone Sodium (Rocephin) 1 gm 1X ONCE 10/30/18 02:30 10/30/18 02:31 DC 10/30/18 02:41 1 GM Multi-Ingredient Mouthwash/Gargle (Gi Cocktail) 20 ml 1X ONCE 10/30/18 02:30 10/30/18 02:31 DC 10/30/18 02:40 20 ML Ondansetron HCl (Zofran) 4 mg 1X ONCE 10/30/18 02:30 10/30/18 02:31 DC 10/30/18 02:43 4 MG Sodium Chloride 500 ml @ 500 mls/hr 1X ONCE 10/30/18 02:30 10/30/18 03:29 10/30/18 02:44 500 MLS/HR Allergies Allergies Allergies Coded Allergies Type Severity Reaction Last Updated Verified I S O L A T I O N *CONTACT* Allergy Unknown 07/30/18 Yes oxycodone Adverse Reaction Intermediate nausea 08/10/13 Yes Physical Exam Physical Exam Constitutional: Well developed, well nourished, no acute distress, non-toxic appearance. [Appears tired but responds appropriately to questioning] HENT: Normocephalic, atraumatic, bilateral external ears normal, oropharynx moist, no oral exudates, nose normal. Eyes: PERRLA, EOMI, conjunctiva normal, no discharge. Neck: Normal range of motion, no tenderness, supple, no stridor. Cardiovascular:Heart regular rhythm, no murmur [Heart rate bradycardic] Lungs & Thorax: Bilateral breath sounds clear to auscultation Abdomen: Bowel sounds normal, soft, no tenderness, no masses, no pulsatile masses. Skin: Warm, dry, no erythema, no rash. Back: No tenderness, no CVA tenderness. Extremities: No tenderness, no cyanosis, no clubbing, ROM intact, no edema. Neurologic: Alert and oriented X 3, normal motor function, normal sensory function, no focal deficits noted. Psychologic: Affect normal, judgement normal, mood normal. Current Patient Data Vital Signs Vital Signs Date Time Temp Pulse Resp B/P (MAP) Pulse Ox O2 Delivery O2 Flow Rate FiO2 10/30/18 02:40 68 19 97 10/30/18 00:25 98.7 176/72 (106) Room Air 98.7 Lab Values Laboratory Tests Test 10/30/18 00:25 10/30/18 01:50 10/30/18 02:20 White Blood Count 6.1 x10^3/uL (4.0-11.0) Red Blood Count 3.75 x10^6/uL (3.50-5.40) Hemoglobin 11.0 g/dL (12.0-15.5) L Hematocrit 33.1 % (36.0-47.0) L Mean Corpuscular Volume 88 fL (79-100) Mean Corpuscular Hemoglobin 29 pg (25-35) Mean Corpuscular Hemoglobin Concent 33 g/dL (31-37) Red Cell Distribution Width 14.0 % (11.5-14.5) Platelet Count 159 x10^3/uL (140-400) Neutrophils (%) (Auto) 63 % (31-73) Lymphocytes (%) (Auto) 26 % (24-48) Monocytes (%) (Auto) 8 % (0-9) Eosinophils (%) (Auto) 3 % (0-3) Basophils (%) (Auto) 1 % (0-3) Neutrophils # (Auto) 3.8 x10^3/uL (1.8-7.7) Lymphocytes # (Auto) 1.6 x10^3/uL (1.0-4.8) Monocytes # (Auto) 0.5 x10^3/uL (0.0-1.1) Eosinophils # (Auto) 0.2 x10^3/uL (0.0-0.7) Basophils # (Auto) 0.0 x10^3/uL (0.0-0.2) Sodium Level 138 mmol/L (136-145) Potassium Level 4.1 mmol/L (3.5-5.1) Chloride Level 102 mmol/L (98-107) Carbon Dioxide Level 28 mmol/L (21-32) Anion Gap 8 (6-14) Blood Urea Nitrogen 26 mg/dL (7-20) H Creatinine 1.2 mg/dL (0.6-1.0) H Estimated GFR (Cockcroft-Gault) 42.5 BUN/Creatinine Ratio 22 (6-20) H Glucose Level 171 mg/dL (70-99) H Calcium Level 8.9 mg/dL (8.5-10.1) Total Bilirubin 0.4 mg/dL (0.2-1.0) Aspartate Amino Transferase (AST) 27 U/L (15-37) Alanine Aminotransferase (ALT) 27 U/L (14-59) Alkaline Phosphatase 113 U/L (46-116) Troponin I Quantitative < 0.017 ng/mL (0.000-0.055) < 0.017 ng/mL (0.000-0.055) Total Protein 6.8 g/dL (6.4-8.2) Albumin 3.4 g/dL (3.4-5.0) Albumin/Globulin Ratio 1.0 (1.0-1.7) Lipase 70 U/L (73-393) L Urine Collection Type Unknown Urine Color Yellow Urine Clarity Clear Urine pH 5.0 Urine Specific [place] 1.020 Urine Protein Negative mg/dL (NEG-TRACE) Urine Glucose (UA) Negative mg/dL (NEG) Urine Ketones (Stick) Negative mg/dL (NEG) Urine Blood Negative (NEG) Urine Nitrite Negative (NEG) Urine Bilirubin Negative (NEG) Urine Urobilinogen Dipstick 0.2 mg/dL (0.2 mg/dL) Urine Leukocyte Esterase Large (NEG) Urine RBC 11-20 /HPF (0-2) Urine WBC Tntc /HPF (0-4) Urine Squamous Epithelial Cells Few /LPF Urine Bacteria Moderate /HPF (0-FEW) Laboratory Tests 10/30/18 00:25 Laboratory Tests 10/30/18 00:25 EKG EKG []EKG showed a normal sinus rhythm with a rate of 62 LVH pattern QRS 122 no acute STEMI was identified Radiology/Procedures Radiology/Procedures [] Impressions: FINDINGS: Images through the lung bases demonstrate mild cardiomegaly. Dependent subsegmental atelectasis is seen involving both lower lobes. The liver is mildly enlarged measuring 21.5 cm in length. It has a nodular contour consistent with cirrhosis. The spleen is mildly enlarged measuring 14.4 cm in length. The pancreas, adrenal glands and right kidney are within normal limits. A 2 mm nonobstructing calculus is seen involving the lower pole of the left kidney. Atherosclerotic calcification abdominal aorta and its branches is noted. The abdominal aorta tapers normally. No free fluid or free air is seen within the abdomen. Air and stool is seen throughout the colon. The appendix is well-visualized and is within normal limits. There is no evidence of bowel obstruction. Images through the pelvis demonstrate the urinary bladder distended with urine. Calcifications are seen within the pelvis consistent with phleboliths. No free fluid is seen. Degenerative changes are seen involving the lower thoracic and throughout the lumbar spine and both hips. IMPRESSION: No acute abnormality is seen. Electronically signed by: Linus Cristina MD (10/30/2018 2:45 AM) [facility] DICTATED and SIGNED BY: LINUS CRISTINA MD DATE: 10/30/18 0245 Course & Med Decision Making Course & Med Decision Making Pertinent Labs and Imaging studies reviewed. (See chart for details) [Pt is an 88 yo female presenting with nausea. Pt reports abrupt onset of nausea and belching at 21:30 on 10/29.. She denies sick contacts and other GI symptoms. She ate a pulled pork sandwich at 18:30 today, however her and others in the family ate this meal as well and do not have these symptoms. She denies chest pain/pressure, shortness of breath, diarrhea, headache, or changes in defecation or urination. A CBC, CMP, UA, CXR, EKG, and Troponin were ordered to r/o an occult OH, pneumonia, or infection as the cause of her isolated nausea. two trop neg ct a/p neg acute abdo nontender ua shows uti this is likely etiology gave symptomatic treatment, po challenge in er. Patient was feeling a lot better. We talked about admission versus trial of outpatient management with oral medication she really wants to try the latter I think this is reasonable based on vital signs and lab work. She was instructed to come back should she have persistent vomiting or be unable take her antibiotics I think she is having is symptomatically utI but she does appear stable for outpatient management. Dragon Disclaimer Dragon Disclaimer This electronic medical record was generated, in whole or in part, using a voice recognition dictation system. Departure Departure Impression: Primary Impression: UTI (urinary tract infection) Disposition: 01 HOME, SELF-CARE Condition: STABLE Referrals: URIEL CHAU MD (PCP) Scripts Cephalexin (CEPHALEXIN) 500 Mg Capsule 1 CAP PO QID, #40 CAP Prov: DEONNA CUEVA MD 10/30/18 Ondansetron (ONDANSETRON ODT) 4 Mg Tab.rapdis 1 TAB PO PRN Q6-8HRS, #16 TAB Prov: DEONNA CUEVA MD 10/30/18 DEONNA CUEVA MD Oct 30, 2018 01:16
[2018-10-30 01:57] LABS: BILIRUBIN,URINE NEGATIVE (NEG); CLARITY,URINE CLEAR; COLOR,URINE YELLOW; NITRITE,URINE NEGATIVE (NEG); PROTEIN,URINE NEGATIVE (NEG-TRACE); UROBILINOGEN,URINE 0.2 mg/dL (0.2 mg/dL)
[2018-10-30 02:08] LABS: BACTERIA,URINE MODERATE /HPF (0-FEW); SQUAMOUS EPITHELIAL CELL,UR FEW /LPF; WBC,URINE TNTC /HPF (0-4)
[2018-10-30] MEDS ORDERED: LIDO:MAALOX 1:1 20 ML SINGLE DOSE. SWSW ONE (02:30)
[2018-10-30] MEDS ORDERED: cefTRIAXone IV Push 1 GM VIAL. IVP ONE (02:30)
--- NOTE | 2018-10-30 02:48 | RAD ---
CT scan of the abdomen and pelvis without contrast 10/30/2018 CLINICAL HISTORY: Nausea, belching and diffuse abdominal pain. TECHNIQUE: Unenhanced, contiguous, 5 mm axial sections were obtained through the abdomen and pelvis. One or more of the following individualized dose reduction techniques were utilized for this study: 1. Automated exposure control. 2. Adjustment of the mA and/or kV according to patient size. 3. Use of iterative reconstruction technique. FINDINGS: Images through the lung bases demonstrate mild cardiomegaly. Dependent subsegmental atelectasis is seen involving both lower lobes. The liver is mildly enlarged measuring 21.5 cm in length. It has a nodular contour consistent with cirrhosis. The spleen is mildly enlarged measuring 14.4 cm in length. The pancreas, adrenal glands and right kidney are within normal limits. A 2 mm nonobstructing calculus is seen involving the lower pole of the left kidney. Atherosclerotic calcification abdominal aorta and its branches is noted. The abdominal aorta tapers normally. No free fluid or free air is seen within the abdomen. Air and stool is seen throughout the colon. The appendix is well-visualized and is within normal limits. There is no evidence of bowel obstruction. Images through the pelvis demonstrate the urinary bladder distended with urine. Calcifications are seen within the pelvis consistent with phleboliths. No free fluid is seen. Degenerative changes are seen involving the lower thoracic and throughout the lumbar spine and both hips. IMPRESSION: No acute abnormality is seen. Electronically signed by: Linus Diaz MD (10/30/2018 2:45 AM) [facility]
[2018-10-30] MEDS ORDERED: ONDA4TAB12 PO (03:15)
[2018-10-30] MEDS ORDERED: CEPH500C PO (03:15)
[2018-10-30 03:34] VITALS: BP 169/88
--- NOTE | 2018-10-30 04:12 | RAD ---
AP portable chest radiograph 10/30/2018 Clinical History: Nausea. An AP erect portable digital radiograph of the chest was obtained. Comparison study is dated 07/28/2018. The cardiac silhouette is mildly enlarged. The thoracic aorta is tortuous. Atherosclerotic calcification of the thoracic aorta is seen. No acute pulmonary infiltrate is noted. No pneumothorax or pleural effusion is seen. The osseous structures are unchanged. Impression: No acute abnormality is seen. Electronically signed by: Linus Diaz MD (10/30/2018 4:09 AM) [facility]
--- NOTE | 2018-10-30 06:39 | EKG ---
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
== END 2018-10-30 03:39 | disposition home or self-care (01) ==
LOC: ER
DX: N39.0 Urinary tract infection, site not specified (principal); R42 Dizziness and giddiness; R14.2 Eructation; E78.00 Pure hypercholesterolemia, unspecified; K21.9 Gastro-esophageal reflux disease without esophagitis; I10 Essential (primary) hypertension; Z88.5 Allergy status to narcotic agent; Z91.041 Radiographic dye allergy status
CPT/HCPCS: 36415; 71045; 74176; 80053; 81001; 83690; 84484; 85025; 87086; 93005; 96361; 96374; 96375; 96376; 99285; J0696; J2405; J7040

== ENCOUNTER 2018-10-30 10:09 | Observation (INO) | payer BC ==
[~2018-10-30] VITALS: Ht 160 cm; Wt 91.6 kg
[~2018-10-30 10:09] MED LIST changes: +CEPH500C PO; +ONDA4TAB12 PO
[2018-10-30] MEDS ORDERED: IV NORMAL SALINE 1000ML BAG 1,000 ML IV ONE (11:00)
--- NOTE | 2018-10-30 11:17 | PHYS DOC ---
Past Medical History Past Medical History: GERD, High Cholesterol, Hypertension, Other Additional Past Medical Histor: torticollus Past Surgical History: Hysterectomy, Knee Replacement Additional Past Surgical Histo: Left Knee Alcohol Use: None Drug Use: None Adult General Chief Complaint Chief Complaint: WEAKNESS/GENERALIZED HPI HPI Patient is a 88 year old female who presents the ER after syncopal episode. Patient had onset of significant nausea starting last night. Patient was seen early this morning in this ED. She had a thorough evaluation including IV fluids and a CT of her abdomen and pelvis. She was diagnosed with a urinary tract infection. She was offered hospitalization the patient preferred discharge. She was given 1 g of IV Rocephin at approximately 3:30 this am. Patient reports that she has felt "achy" since discharge. States that she was sitting in a chair when she had a witnessed syncopal episode. No seizure activity. No concerns for trauma. Episodes last approximately 30 seconds. Patient denies any headache. Patient does report some continued nausea. 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 Patient denies any history of recurrent urinary tract infections. Patient denies any abdominal pain. Patient denies any fever. Review of Systems Review of Systems Constitutional: Denies fever or chills [] Eyes: Denies change in visual acuity, redness, or eye pain [] HENT: Denies nasal congestion or sore throat [] Respiratory: Denies cough or shortness of breath [] Cardiovascular: No chest pain, no palpitations, no lower extremity edema. GI: Denies abdominal pain, nausea, vomiting, bloody stools or diarrhea [] : Denies dysuria or hematuria [] Musculoskeletal: Denies back pain or joint pain [] Integument: Denies rash or skin lesions [] Neurologic: Denies headache, focal weakness or sensory changes [] Endocrine: Denies polyuria or polydipsia [] All other systems were reviewed and found to be within normal limits, except as documented in this note. Current Medications Current Medications Current Medications Medications (Trade) Dose Ordered Sig/Christiano Start Time Stop Time Status Last Admin Dose Admin Sodium Chloride 1,000 ml @ 1,000 mls/hr 1X ONCE 10/30/18 11:00 10/30/18 11:59 DC 10/30/18 12:36 1,000 MLS/HR Allergies Allergies Allergies Coded Allergies Type Severity Reaction Last Updated Verified I S O L A T I O N *CONTACT* Allergy Unknown 07/30/18 Yes oxycodone Adverse Reaction Intermediate nausea 08/10/13 Yes Physical Exam Physical Exam Constitutional: Obese, no acute distress, nontoxic appearing HENT: Normocephalic, atraumatic, Eyes: PERRLA, EOMI, Neck: Normal range of motion, no tenderness, supple, no stridor. [] Cardiovascular:Heart rate regular rhythm, no murmur [] Lungs & Thorax: Bilateral breath sounds clear to auscultation [] Abdomen: Bowel sounds normal, soft, no tenderness, no masses, no pulsatile mas ses. [] Skin: Warm, dry, no erythema, no rash. [] Back: No tenderness, no CVA tenderness. [] Extremities: No tenderness, no edema. [] Neurologic: Alert and oriented X 3, normal motor function, normal sensory func tion, no focal deficits noted. [] Psychologic: Affect normal, judgement normal, mood normal. [] Current Patient Data Vital Signs Vital Signs Date Time Temp Pulse Resp B/P (MAP) Pulse Ox O2 Delivery O2 Flow Rate FiO2 10/30/18 14:17 60 21 98 10/30/18 10:09 97.8 174/73 (106) Room Air 97.8 Lab Values Laboratory Tests Test 10/30/18 12:35 10/30/18 13:10 Urine Collection Type Unknown Urine Color Yellow Urine Clarity Cloudy Urine pH 7.0 Urine Specific [place] 1.015 Urine Protein Negative mg/dL (NEG-TRACE) Urine Glucose (UA) Negative mg/dL (NEG) Urine Ketones (Stick) Negative mg/dL (NEG) Urine Blood Trace (NEG) Urine Nitrite Negative (NEG) Urine Bilirubin Negative (NEG) Urine Urobilinogen Dipstick 0.2 mg/dL (0.2 mg/dL) Urine Leukocyte Esterase Small (NEG) Urine RBC 1-2 /HPF (0-2) Urine WBC 5-10 /HPF (0-4) Urine Squamous Epithelial Cells Occ /LPF Urine Transitional Epithelial Cells Occ /LPF Urine Amorphous Sediment Present /HPF Urine Bacteria Moderate /HPF (0-FEW) White Blood Count 6.1 x10^3/uL (4.0-11.0) Red Blood Count 3.67 x10^6/uL (3.50-5.40) Hemoglobin 10.8 g/dL (12.0-15.5) L Hematocrit 32.1 % (36.0-47.0) L Mean Corpuscular Volume 88 fL (79-100) Mean Corpuscular Hemoglobin 29 pg (25-35) Mean Corpuscular Hemoglobin Concent 34 g/dL (31-37) Red Cell Distribution Width 13.9 % (11.5-14.5) Platelet Count 146 x10^3/uL (140-400) Neutrophils (%) (Auto) 78 % (31-73) H Lymphocytes (%) (Auto) 15 % (24-48) L Monocytes (%) (Auto) 7 % (0-9) Eosinophils (%) (Auto) 1 % (0-3) Basophils (%) (Auto) 0 % (0-3) Neutrophils # (Auto) 4.7 x10^3/uL (1.8-7.7) Lymphocytes # (Auto) 0.9 x10^3/uL (1.0-4.8) L Monocytes # (Auto) 0.4 x10^3/uL (0.0-1.1) Eosinophils # (Auto) 0.0 x10^3/uL (0.0-0.7) Basophils # (Auto) 0.0 x10^3/uL (0.0-0.2) Sodium Level 139 mmol/L (136-145) Potassium Level 4.6 mmol/L (3.5-5.1) Chloride Level 104 mmol/L (98-107) Carbon Dioxide Level 28 mmol/L (21-32) Anion Gap 7 (6-14) Blood Urea Nitrogen 21 mg/dL (7-20) H Creatinine 1.0 mg/dL (0.6-1.0) Estimated GFR (Cockcroft-Gault) 52.4 Glucose Level 128 mg/dL (70-99) H Lactic Acid Level 1.5 mmol/L (0.4-2.0) Calcium Level 8.5 mg/dL (8.5-10.1) Troponin I Quantitative < 0.017 ng/mL (0.000-0.055) Laboratory Tests 10/30/18 13:10 Laboratory Tests 10/30/18 13:10 EKG EKG 10:50 normal sinus rhythm, heart rate 66, no significant ST segment changes.[] Radiology/Procedures Radiology/Procedures CXR IMPRESSION: Bilateral stable interstitial opacities may be secondary to atypical/viral infection or mild interstitial pulmonary edema. Stable exam. [] Course & Med Decision Making Course & Med Decision Making Pertinent Labs and Imaging studies reviewed. (See chart for details) Patient with her ER evaluation earlier today including CT imaging of her belly. ER evaluation that time only concerning for urinary tract infection. Patient was discharged. Patient with now a syncopal episode. She has remained asymptomatic and hemodynamically stable in the ER. She is having some intermittent mild hypoxia when falling asleep and is on 2 L of oxygen. Repeat chest x-ray as above. Rocephin given within the last 12 hours. I did not feel the patient needs more antibiotic coverage. Will admit for continued evaluation. Discussed with Dr. nicolas [employer] for patient's PCP who is agreeable to admission. Patient states continues to state that she feels better. Patient had a few bites of Jell-O and tolerated it well. Urine not consistent with severe urinary tract infection but does appear to be the only source of infection at this time. Will admit for further management. Discussed with Dr. Nicolas [employer] for patient's PCP who is agreeable to admission. Patient and hemodynamically stable while in the ER. Dragon Disclaimer Dragon Disclaimer This electronic medical record was generated, in whole or in part, using a voice recognition dictation system. Departure Departure Impression: Primary Impression: UTI (urinary tract infection) Additional Impression: Syncope Disposition: 09 ADMITTED INPATIENT Admitting Physician: Ruthy Nicolas Condition: GUARDED Referrals: URIEL CHAU MD (PCP) Problem Qualifiers ISREAL SHAHID DO Oct 30, 2018 11:17
--- NOTE | 2018-10-30 11:42 | RAD ---
Indication:Hypoxia. TECHNIQUE:Portable AP chest X-ray COMPARISON: Study from the same day earlier FINDINGS: Heart is normal in size. Diffuse bilateral interstitial opacities are seen. No focal consolidation. No pneumothorax or pleural effusion. Visualized bony thorax is within normal limits. IMPRESSION: Bilateral stable interstitial opacities may be secondary to atypical/viral infection or mild interstitial pulmonary edema. Stable exam. Electronically signed by: Marciano Thompson DO (10/30/2018 11:39 AM) [facility]
--- NOTE | 2018-10-30 12:17 | EKG ---
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
[2018-10-30 12:42] LABS: BILIRUBIN,URINE NEGATIVE (NEG); CLARITY,URINE CLOUDY; COLOR,URINE YELLOW; NITRITE,URINE NEGATIVE (NEG); PROTEIN,URINE NEGATIVE (NEG-TRACE); UROBILINOGEN,URINE 0.2 mg/dL (0.2 mg/dL)
[2018-10-30 12:58] LABS: AMORPHOUS SEDIMENT,UR PRESENT /HPF; BACTERIA,URINE MODERATE /HPF (0-FEW); SQUAMOUS EPITHELIAL CELL,UR OCC /LPF
[2018-10-30 13:24] LABS: BASO % 0 % (0-3); EOS % 1 % (0-3); HEMATOCRIT 32.1 % (36.0-47.0); HEMOGLOBIN 10.8 g/dL (12.0-15.5); LYMPH # 0.9 x10^3/uL (1.0-4.8); LYMPH % 15 % (24-48); MEAN CORPUSCULAR HEMOGLOBIN 29 pg (25-35); MEAN CORPUSCULAR HGB CONC 34 g/dL (31-37); MEAN CORPUSCULAR VOLUME 88 fL (79-100); MONO # 0.4 x10^3/uL (0.0-1.1); MONO % 7 % (0-9); NEUT # 4.7 x10^3/uL (1.8-7.7); NEUT % 78 % (31-73); PLATELET COUNT 146 x10^3/uL (140-400); RED BLOOD COUNT 3.67 x10^6/uL (3.50-5.40); RED CELL DISTRIBUTION WIDTH 13.9 % (11.5-14.5); WHITE BLOOD COUNT 6.1 x10^3/uL (4.0-11.0)
[2018-10-30 13:42] LABS: CALCIUM 8.5 mg/dL (8.5-10.1); GFR 52.4; POTASSIUM 4.6 mmol/L (3.5-5.1)
[2018-10-30 16:30] VITALS: BP 146/58
--- NOTE | 2018-10-30 16:51 | NUR ---
Patient arrived to the unit with daughter and . Current medication list at home, is leaving to go and pick this up. A&O x 4, no complaints of pain, on 2 Li, VS stable. Dr. Tran notified that patient has arrived to the unit. She would like to be called once home medications have been put in the computer. Will continue to monitor.
[2018-10-30 19:51] VITALS: BP 139/46
[2018-10-30] MEDS ORDERED: ONDANSETRON ODT 4 MG TAB.RAPDIS. PO PRN (21:15)
[2018-10-30 23:00] VITALS: BP 129/76
[2018-10-31 03:14] VITALS: BP 123/49
[2018-10-31 07:00] VITALS: BP 149/38
[2018-10-31] MEDS ORDERED: PANTOPRAZOLE 40 MG TABLET.DR. PO SCH (07:30)
--- NOTE | 2018-10-31 08:12 | PDOC1 ---
H & P. HPI: Ms. Ramirez is an 88 yo female with PMH of HTN, HLD, well controlled type 2 DM, chronic low back pain and chronic right shoulder pain, who presented to the ED yesterday for a witnessed syncopal episode. She was evaluated in the ED in the children's tutor of 10/30 and labs and imaging were only remarkable for possible UTI, though patient denies symptoms of dysuria, frequency or urgency. She was complaining of feeling "off" and nauseated. Denies known weird food exposures or changes in medicines or routine. He was given antibiotic and went home at approximately 4 AM on 6 after declined to be admitted. She then slept until midmorning and woke up still feeling off. She was sitting at the kitchen table when her was going to help her stand and she seemed to slump down to the floor. By the time her got to her, she had regained consciousness and was asking how she had gotten to the floor. She denies any pain. She and deny head. EMS was called and she was brought to the emergency room for further eval. She denies vertigo. She denies any known history of heart rhythm issues such as atrial fibrillation. She does see Dr. Carlos regularly. She denied any symptoms of facial droop or weakness, paresthesias throughout the body, weakness of arms or legs, slurred speech, confusion. Has been denied any shaking or seizure-like movements. This morning she is feeling well and denies any other symptoms or issues. ROS: Constitutional: Denies fever, fatigue, chills HEENT: Denies sore throat, vision changes, vertigo Cardio: Denies chest pain, dyspnea with exertion, syncope, palpitations, edema Pulmonary: Denies shortness of breath, cough, wheezing GI: Denies nausea, vomiting, diarrhea, constipation : Denies dysuria, frequency, urgency, incontinence Skin: Denies new lesions Neuro: Denies weakness, paresthesias, slurred speech, confusion PMH: As above FAMILY HX: Noncontributory SOCIAL HX: Nonsmoker, no alcohol or drug use. SURGICAL HX: L partial knee replacement in 2004, hysterectomy, cataract surgery MEDS: Reviewed and reconciled ALLERGIES: Reviewed PE: Alert, oriented, no acute distress EOMI, sclera non-icteric Neck supple RRR, 1/6 systolic murmur at 2nd right intercostal space CTAB, no wheezes, crackles or rhonchi Soft, NT, ND Trace edema in b/l LE to mid rubalcava, no cyanosis. Calm, cooperative, mood/affect within normal limits ASSESSMENT & PLAN: Possible syncopal episode HTN DM2, well controlled HLD Subclinical hypothyroidism Chronic low back pain Chronic right shoulder pain No acute events overnight. No events on tele. ALICE ENCARNACION MD Oct 31, 2018 08:12
[2018-10-31] MEDS ORDERED: CYANOCOBALAMIN (VITAMIN B-12) 1,000 MCG TABLET. PO SCH (09:00)
[2018-10-31] MEDS ORDERED: CHOLECALCIFEROL (VITAMIN D3) 1,000 UNIT TABLET PO SCH (09:00)
[2018-10-31] MEDS ORDERED: amLODIPine BESYLATE 5 MG TABLET PO SCH (09:00)
[2018-10-31] MEDS ORDERED: LOSARTAN POTASSIUM 50 MG TABLET. PO SCH (09:00)
[2018-10-31] MEDS ORDERED: POLYETHYLENE GLYCOL 3350 17 GM PACKET. PO SCH (09:00)
--- NOTE | 2018-10-31 09:36 | NUR ---
IP: Pt has a hx of + mrsa screen on 07/29/18. Pt to be in contact precautions until there are 2 negative screens 7 days apart.
--- NOTE | 2018-10-31 09:42 | NUR ---
SS following for discharge planning. SS reviewed pt chart. Pt is from home with spouse and is currently requiring oxygen. No discharge needs noted at this time. SS will continue to follow for discharge planning.
--- NOTE | 2018-10-31 10:38 | CARD ---
MR#: [id number] Date of Study: 10/31/2018 Ordering Physician: ALICE ENCARNACION, Referring Physician: ALICE ENCARNACION Tech: Gertrudis Hernadez RDCS APPROVED REPORT EXAM: Two-dimensional and M-mode echocardiogram with Doppler and color Doppler. Other Information Quality : AverageHR: 61bpm Rhythm : NSR INDICATION Syncope 2D DIMENSIONS RVDd3.0 (2.9-3.5cm)Left Atrium(2D)4.3 (1.6-4.0cm) IVSd1.1 (0.7-1.1cm)Aortic Root(2D)2.6 (2.0-3.7cm) LVDd5.1 (3.9-5.9cm)LVOT Diameter1.9 (1.8-2.4cm) PWd1.0 (0.7-1.1cm)LVDs3.1 (2.5-4.0cm) FS (%) 39.2 %SV84.9 ml LVEF(%)65.0 (>50%) M-Mode DIMENSIONS Left Atrium(MM)4.86 (2.5-4.0cm)Aortic Root2.97 (2.2-3.7cm) Aortic Valve AoV Peak Robert.181.0cm/sAoV VTI43.2cm AO Peak GR.13.1mmHgLVOT Peak Robert.106.3cm/s AO Mean GR.7mmHgAVA (VMAX)1.59cm2 SEMAJ (VTI)1.60cm2 Mitral Valve MV E Hovcdbuf061.0cm/sMV E Peak Gr.5mmHg MV DECEL [id number] A Kuyhofly06.7cm/s MV E Mean Gr.2mmHgE/A Ratio1.4 Pulmonary Valve PV Peak Sxowcufo230.3cm/s Tricuspid Valve TR P. Cdojbbmn029go/sRAP HYDZSKLU6boKa TR Peak Gr.79dfYuFBLD20dnGn LEFT VENTRICLE The left ventricle is normal size. There is borderline to mild concentric left ventricular hypertroph y. The left ventricular systolic function is normal. The Ejection Fraction is 60-65%. There is normal LV segmental wall motion. Transmitral Doppler flow pattern is Grade II-pseudonormal filling dynamics . RIGHT VENTRICLE The right ventricle is normal size. There is normal right ventricular wall thickness. The right ventr icular systolic function is normal. ATRIA The left atrium is mildly dilated. The right atrium size is normal. The interatrial septum is intact with no evidence for an atrial septal defect or patent foramen ovale as noted on 2-D or Doppler imagi ng. AORTIC VALVE The aortic valve is trileaflet. The aortic valve is mildly calcified. Doppler and Color Flow revealed trace aortic regurgitation. There is no significant aortic valvular stenosis. There is no aortic mae vular vegetation. MITRAL VALVE Mitral annular calcification is mild to moderate. There is no evidence of mitral valve prolapse. Ther e is no mitral valve stenosis. Doppler and Color-flow revealed trace to mild mitral regurgitation. TRICUSPID VALVE The tricuspid valve is normal in structure and function. Doppler and Color Flow revealed trace tricus pid regurgitation. The PA pressure was estimated at 29 mmHg. There is no tricuspid valve prolapse or vegetation. There is no tricuspid valve stenosis. PULMONIC VALVE The pulmonary valve is normal in structure and function. Doppler and Color Flow revealed trace pulmon ic valvular regurgitation. There is no pulmonic valvular stenosis. GREAT VESSELS The aortic root is normal in size. The ascending aorta is normal in size. The IVC is normal in size a nd collapses >50% with inspiration. PERICARDIAL EFFUSION There is no evidence of significant pericardial effusion. Critical Notification Critical Value: No <Conclusion> The left ventricular systolic function is normal. The Ejection Fraction is 60-65%. There is normal LV segmental wall motion. Transmitral Doppler flow pattern is Grade II-pseudonormal filling dynamics. The left atrium is mildly dilated. Trace to mild mitral regurgitation. Trace tricuspid regurgitation. The PA pressure was estimated at 29 mmHg. There is no evidence of significant pericardial effusion. Signed by : Tarun Griffiths, Electronically Approved : 10/31/2018 10:38:04
--- NOTE | 2018-10-31 10:48 | PDOC2 ---
CARDIAC CONSULT DATE OF CONSULT Date of Consult DATE: 10/31/18 TIME: 10:43 REASON FOR CONSULT Reason for Consult: Syncope REFERRING PHYSICIAN Referring Physician: Dr. Tran SOURCE Source: Chart review, Patient HISTORY OF PRESENT ILLNESS HISTORY OF PRESENT ILLNESS This is an 88 yo female who presented secondary to syncopal episode. Patient reports she began feeling "woozie" about 10pm Monday night when she arrived home from a birthday democrat. Was "wobbly" on her feet. decided to bring her to the ED for further evaluation and treatment. Was treated for UTI and discharged home in stable condition. Was improved following treatment in the ED. We home and slept for 4 hours. Woke up and was dizzy again. [place] a little nauseated. Walked to the kitchen and sat down in the chair. Next thing she knew was on the floor lying face down. Cannot recall falling to the floor. Denies ay chest pain, palpitations, diaphoresis, or SOA. No previous syncopal episode. Patient reports felling better this morning, but fells a little "off". Her and her follow closely with Dr. Carlos. Last stress test about 2 years ago. PAST MEDICAL HISTORY Cardiovascular: HTN, Hyperlipidemia Pulmonary: No pertinent hx CENTRAL NERVOUS SYSTEM: Periperal neuropathy GI: GERD Hepatobiliary: No pertinent hx Psych: No pertinent hx Musculoskeletal: Osteoarthritis, Other (spinal stenosis ) Rheumatologic: No pertinent hx Infectious disease: No pertinent hx ENT: No pertinent hx Renal/: UTI Endocrine: No pertinent hx, Hypothyroidism PAST SURGICAL HISTORY Past Surgical History: Appendectomy, Total knee replacement (left ), T onsillectomy, Hysterectomy FAMILY HISTORY Family History: Alzheimer's Disease SOCIAL HISTORY Smoke: No ALCOHOL: none Drugs: None Lives: with Family CURRENT MEDICATIONS CURRENT MEDICATIONS Current Medications Medications (Trade) Dose Ordered Sig/Christiano Route PRN Reason Start Time Stop Time Status Last Admin Dose Admin Sodium Chloride 1,000 ml @ 1,000 mls/hr 1X ONCE IV 10/30/18 11:00 10/30/18 11:59 DC 10/30/18 12:36 Vitamin D (Vitamin D3) 1,000 unit DAILY PO 10/31/18 09:00 10/31/18 10:20 Losartan Potassium (Cozaar) 100 mg DAILY PO 10/31/18 09:00 10/31/18 10:20 Amlodipine Besylate (Norvasc) 2.5 mg DAILY PO 10/31/18 09:00 10/31/18 10:21 Cyanocobalamin (Vitamin B-12) 1,000 mcg DAILY PO 10/31/18 09:00 10/31/18 10:21 Pantoprazole Sodium (Protonix) 40 mg DAILYAC PO 10/31/18 07:30 10/31/18 10:21 ALLERGIES ALLERGIES: Coded Allergies: I S O L A T I O N *CONTACT* (Verified Allergy, Unknown, 07/30/18) mrsa oxycodone (Verified Adverse Reaction, Intermediate, nausea, 08/10/13) ROS Review of System 14 point ROS conducted with pertinent positives noted above in HPI. PHYSICAL EXAM General: Alert, Oriented X3, Cooperative, No acute distress HEENT: Atraumatic, Mucous membr. moist/pink Lungs: Clear to auscultation, Normal air movement Heart: Regular rate (SB,SR), Normal S1, Normal S2, No murmurs Abdomen: Soft, No tenderness Extremities: No edema, Normal pulses Skin: No breakdown, No significant lesion Neuro: Normal speech, Sensation intact Psych/Mental Status: Mental status NL, Mood NL MUSCULOSKELETAL: Osteoarthritic changes both hands VITALS/I&O VITALS/I&O: Vital Signs Date Time Temp Pulse Resp B/P (MAP) Pulse Ox O2 Delivery O2 Flow Rate FiO2 10/31/18 10:21 62 149/38 10/31/18 07:00 98.1 17 94 Room Air 98.1 10/31/18 03:14 2.0 I & O 10/30/18 10/30/18 10/31/18 14:59 22:59 06:59 Intake Total 999 ml Balance 999 ml LABS Lab: Laboratory Tests Test 10/30/18 12:35 10/30/18 13:10 Urine Collection Type Unknown Urine Color Yellow Urine Clarity Cloudy Urine pH 7.0 Urine Specific Ray 1.015 Urine Protein Negative mg/dL (NEG-TRACE) Urine Glucose (UA) Negative mg/dL (NEG) Urine Ketones (Stick) Negative mg/dL (NEG) Urine Blood Trace (NEG) Urine Nitrite Negative (NEG) Urine Bilirubin Negative (NEG) Urine Urobilinogen Dipstick 0.2 mg/dL (0.2 mg/dL) Urine Leukocyte Esterase Small (NEG) Urine RBC 1-2 /HPF (0-2) Urine WBC 5-10 /HPF (0-4) Urine Squamous Epithelial Cells Occ /LPF Urine Transitional Epithelial Cells Occ /LPF Urine Amorphous Sediment Present /HPF Urine Bacteria Moderate /HPF (0-FEW) White Blood Count 6.1 x10^3/uL (4.0-11.0) Red Blood Count 3.67 x10^6/uL (3.50-5.40) Hemoglobin 10.8 g/dL (12.0-15.5) L Hematocrit 32.1 % (36.0-47.0) L Mean Corpuscular Volume 88 fL (79-100) Mean Corpuscular Hemoglobin 29 pg (25-35) Mean Corpuscular Hemoglobin Concent 34 g/dL (31-37) Red Cell Distribution Width 13.9 % (11.5-14.5) Platelet Count 146 x10^3/uL (140-400) Neutrophils (%) (Auto) 78 % (31-73) H Lymphocytes (%) (Auto) 15 % (24-48) L Monocytes (%) (Auto) 7 % (0-9) Eosinophils (%) (Auto) 1 % (0-3) Basophils (%) (Auto) 0 % (0-3) Neutrophils # (Auto) 4.7 x10^3/uL (1.8-7.7) Lymphocytes # (Auto) 0.9 x10^3/uL (1.0-4.8) L Monocytes # (Auto) 0.4 x10^3/uL (0.0-1.1) Eosinophils # (Auto) 0.0 x10^3/uL (0.0-0.7) Basophils # (Auto) 0.0 x10^3/uL (0.0-0.2) Sodium Level 139 mmol/L (136-145) Potassium Level 4.6 mmol/L (3.5-5.1) Chloride Level 104 mmol/L (98-107) Carbon Dioxide Level 28 mmol/L (21-32) Anion Gap 7 (6-14) Blood Urea Nitrogen 21 mg/dL (7-20) H Creatinine 1.0 mg/dL (0.6-1.0) Estimated GFR (Cockcroft-Gault) 52.4 Glucose Level 128 mg/dL (70-99) H Lactic Acid Level 1.5 mmol/L (0.4-2.0) Calcium Level 8.5 mg/dL (8.5-10.1) Troponin I Quantitative < 0.017 ng/mL (0.000-0.055) Laboratory Tests 10/30/18 13:10 Laboratory Tests 10/30/18 13:10 ECHOCARDIOGRAM ECHOCARDIOGRAM <Conclusion> The left ventricular systolic function is normal. The Ejection Fraction is 60-65%. There is normal LV segmental wall motion. Transmitral Doppler flow pattern is Grade II-pseudonormal filling dynamics. The left atrium is mildly dilated. Trace to mild mitral regurgitation. Trace tricuspid regurgitation. The PA pressure was estimated at 29 mmHg. There is no evidence of significant pericardial effusion. DATE: 10/31/18 1038 STRESS TEST STRESS TEST Conclusion 1. No evidence of significant fixed or reversible defects appreciated. 2. Ejection fraction calculated to be 71% with normal wall motion on gated SPECT images. 3. Normal nuclear imaging scan. DATE: 04/18/13 1250 ASSESSMENT/PLAN ASSESSMENT/PLAN 1. Syncope; no acute ectopy noted on telemetry. Echo showed preserved LV systolic function 2. Hypertension; controlled 3. Hyperlipidemia 4. Hypothyroidism; recently started on replacement therapy. 5. UTI from urine 10/30 with ED visit just after midnight. F/u UA improved. 6. CHAD; improved with IVFs Recommendations Check orthostatic vitals Adequate hydration Outpatient event monitor. Patient and with like this conducted with primary inspector packager, Dr. Carlos. Discussed with RN Consider outpatient ischemic evaluation. MALATHI TOLBERT APRN Oct 31, 2018 10:48
[2018-10-31 10:52] LABS: BASO % 1 % (0-3); EOS # 0.2 x10^3/uL (0.0-0.7); EOS % 3 % (0-3); HEMATOCRIT 33.1 % (36.0-47.0); LYMPH # 1.2 x10^3/uL (1.0-4.8); LYMPH % 18 % (24-48); MEAN CORPUSCULAR HEMOGLOBIN 29 pg (25-35); MEAN CORPUSCULAR HGB CONC 33 g/dL (31-37); MEAN CORPUSCULAR VOLUME 88 fL (79-100); MONO # 0.5 x10^3/uL (0.0-1.1); MONO % 8 % (0-9); NEUT # 4.7 x10^3/uL (1.8-7.7); NEUT % 71 % (31-73); PLATELET COUNT 162 x10^3/uL (140-400); RED BLOOD COUNT 3.77 x10^6/uL (3.50-5.40); RED CELL DISTRIBUTION WIDTH 14.2 % (11.5-14.5); WHITE BLOOD COUNT 6.6 x10^3/uL (4.0-11.0)
[2018-10-31 11:00] VITALS: BP 152/58
[2018-10-31 13:00] VITALS: BP_SYST 143; BP_SYST 154; BP_SYST 159; BP_DIAS 56; BP_DIAS 68; BP_DIAS 94
--- NOTE | 2018-10-31 14:54 | NUR ---
SS following up with discharge planning. PT recommended home healthcare. [facility] ; fax [phone]. SS will await orders for home healthcare and will proceed accordingly.
[2018-10-31 15:00] VITALS: BP 137/51
--- NOTE | 2018-10-31 16:17 | NUR ---
Discharge instructions given to patient and family regarding follow up appointment with Dr. Tran. Pt informed of 2 week event monitor with her news videographer, Dr. Carlos. Patient education given over syncope and weakness. Patient verbalized understanding of follow up appointment, outpatient ekg monitor tech, and education.
[2018-10-31] MEDS ORDERED: SIMVASTATIN 10 MG TABLET PO SCH (21:00)
== END 2018-10-31 16:08 | disposition home or self-care (01) ==
LOC: ER 10:09 → 6 SOUTH 14:33
PROVIDERS: ADMIT Family Medicine; ATTEND Family Medicine
DX: R55 Syncope and collapse (principal); I10 Essential (primary) hypertension; E78.5 Hyperlipidemia, unspecified; E03.9 Hypothyroidism, unspecified; N39.0 Urinary tract infection, site not specified; N17.9 Acute kidney failure, unspecified; E11.9 Type 2 diabetes mellitus without complications; K21.9 Gastro-esophageal reflux disease without esophagitis; G89.29 Other chronic pain; M54.5 Low back pain; M25.511 Pain in right shoulder; Z90.710 Acquired absence of both cervix and uterus; Z96.652 Presence of left artificial knee joint
CPT/HCPCS: 36415; 71045; 80048; 81001; 83605; 84484; 85025; 87040; 87086; 93005; 93306; 96360; 97162; 99284; G0378; J7030; G0379

== ENCOUNTER 2019-04-06 21:03 | Emergency (ER) | payer BC ==
[~2019-04-06] VITALS: Ht 160 cm; Wt 91.6 kg
[~2019-04-06 21:03] MED LIST changes: +OMEP-229 PO; -OMEP20CA10 PO; +SIMV20TA18 PO; -SIMV20TA3 PO
[2019-04-06] MEDS ORDERED: LIDO:MAALOX 1:1 20 ML SINGLE DOSE. SWSW ONE (22:15)
[2019-04-06] MEDS ORDERED: ONDANSETRON PF 4 MG/2 ML VIAL. IV ONE (22:15)
--- NOTE | 2019-04-06 22:23 | PHYS DOC ---
Past Medical History Past Medical History: GERD, High Cholesterol, Hypertension, Other Additional Past Medical Histor: torticollus Past Surgical History: Hysterectomy, Knee Replacement Additional Past Surgical Histo: Left Knee Alcohol Use: None Drug Use: None Adult General Chief Complaint Chief Complaint: GI PROBLEM [facility] HPI Patient is a 89 year old female, accompanied by her and family, who presents to the emergency department [facility] with complaints of indigestion, and nausea. Patient states she had been at the medical center earlier today and then [facility] at about 1900 she began to feel nauseated. Patient states she tried burping but got no relief of her discomfort, then she had a bowel movement and the nausea improved for a little bit but then quickly returned. Patient states she was trying to remember a recipe for kolaches that she planned to make with her daughter. Pt states that she couldn't remember all of the ingredients and became a bit worked up over it. Patient denies any chest pain, palpitations, shortness of breath, wheezing, diaphoresis, vomiting, diarrhea, abdominal pain, back pain, dizziness, headache, vision changes, numbness, tingling, weakness, or difficulty speaking. She currently denies any pain, her only complaint is nausea at this time. All other ROS is neg unless otherwise noted in HPI. Review of Systems Review of Systems See Above Current Medications Current Medications Current Medications Medications (Trade) Dose Ordered Sig/Christiano Start Time Stop Time Status Last Admin Dose Admin Multi-Ingredient Mouthwash/Gargle (Gi Cocktail) 20 ml 1X ONCE 04/06/19 22:15 04/06/19 22:16 DC 04/06/19 22:02 20 ML Ondansetron HCl (Zofran) 4 mg 1X ONCE 04/06/19 22:15 04/06/19 22:16 DC 04/06/19 22:17 4 MG Allergies Allergies Allergies Coded Allergies Type Severity Reaction Last Updated Verified I S O L A T I O N *CONTACT* Allergy Unknown 07/30/18 Yes oxycodone Adverse Reaction Intermediate nausea 08/10/13 Yes Physical Exam Physical Exam See Above Constitutional: Well developed, well nourished, no acute distress, non-toxic appearance, obese. [] HENT: Normocephalic, atraumatic, bilateral external ears normal, oropharynx moist, no oral exudates, nose normal. [] Eyes: PERRLA, EOMI, conjunctiva normal, no discharge. [] Neck: Normal range of motion, no stridor. [] Cardiovascular:Heart rate regular rhythm, no murmur [] Lungs & Thorax: Bilateral breath sounds clear to auscultation, Respirations even and unlabored, no retractions, no respiratory distress [] Abdomen: Bowel sounds normal, soft, no tenderness, no masses, no pulsatile masses. [] Skin: Warm, dry, no erythema, no rash. [] Back: No CVA tenderness. [] Extremities: No cyanosis, ROM intact, no edema. [] Neurologic: Alert and oriented X 3, no focal deficits noted. [] Psychologic: Affect normal, judgement normal, mood normal. [] Current Patient Data Vital Signs Vital Signs Date Time Temp Pulse Resp B/P (MAP) Pulse Ox O2 Delivery O2 Flow Rate FiO2 04/06/19 21:04 98.8 83 18 184/79 (114) 97 Room Air 98.8 Lab Values Laboratory Tests Test 04/06/19 22:10 04/06/19 22:35 04/06/19 23:45 White Blood Count 5.9 x10^3/uL (4.0-11.0) Red Blood Count 4.29 x10^6/uL (3.50-5.40) Hemoglobin 12.3 g/dL (12.0-15.5) Hematocrit 37.4 % (36.0-47.0) Mean Corpuscular Volume 87 fL (79-100) Mean Corpuscular Hemoglobin 29 pg (25-35) Mean Corpuscular Hemoglobin Concent 33 g/dL (31-37) Red Cell Distribution Width 13.6 % (11.5-14.5) Platelet Count 163 x10^3/uL (140-400) Neutrophils (%) (Auto) 77 % (31-73) H Lymphocytes (%) (Auto) 17 % (24-48) L Monocytes (%) (Auto) 5 % (0-9) Eosinophils (%) (Auto) 1 % (0-3) Basophils (%) (Auto) 0 % (0-3) Neutrophils # (Auto) 4.5 x10^3/uL (1.8-7.7) Lymphocytes # (Auto) 1.0 x10^3/uL (1.0-4.8) Monocytes # (Auto) 0.3 x10^3/uL (0.0-1.1) Eosinophils # (Auto) 0.1 x10^3/uL (0.0-0.7) Basophils # (Auto) 0.0 x10^3/uL (0.0-0.2) Prothrombin Time 13.8 SEC (11.7-14.0) Prothrombin Time INR 1.1 (0.8-1.1) Activated Partial Thromboplast Time 33 SEC (24-38) Sodium Level 139 mmol/L (136-145) Potassium Level 4.3 mmol/L (3.5-5.1) Chloride Level 103 mmol/L (98-107) Carbon Dioxide Level 27 mmol/L (21-32) Anion Gap 9 (6-14) Blood Urea Nitrogen 27 mg/dL (7-20) H Creatinine 1.2 mg/dL (0.6-1.0) H Estimated GFR (Cockcroft-Gault) 42.4 BUN/Creatinine Ratio 23 (6-20) H Glucose Level 142 mg/dL (70-99) H Calcium Level 8.7 mg/dL (8.5-10.1) Magnesium Level 1.9 mg/dL (1.8-2.4) Total Bilirubin 0.5 mg/dL (0.2-1.0) Aspartate Amino Transferase (AST) 28 U/L (15-37) Alanine Aminotransferase (ALT) 24 U/L (14-59) Alkaline Phosphatase 86 U/L (46-116) Creatine Kinase 57 U/L (26-192) Creatine Kinase MB (Mass) 1.0 ng/mL (0.0-3.6) Creatine Kinase MB Relative Index % (0-4) Troponin I Quantitative < 0.017 ng/mL (0.000-0.055) Total Protein 6.6 g/dL (6.4-8.2) Albumin 3.7 g/dL (3.4-5.0) Albumin/Globulin Ratio 1.3 (1.0-1.7) Lipase 57 U/L (73-393) L Urine Collection Type U cath Urine Color Yellow Urine Clarity Clear Urine pH 5.0 Urine Specific Albright 1.020 Urine Protein Negative mg/dL (NEG-TRACE) Urine Glucose (UA) Negative mg/dL (NEG) Urine Ketones (Stick) Negative mg/dL (NEG) Urine Blood Negative (NEG) Urine Nitrite Negative (NEG) Urine Bilirubin Negative (NEG) Urine Urobilinogen Dipstick 1.0 mg/dL (0.2 mg/dL) Urine Leukocyte Esterase Negative (NEG) Urine RBC Occ /HPF (0-2) Urine WBC Occ /HPF (0-4) Urine Squamous Epithelial Cells Few /LPF Urine Bacteria 0 /HPF (0-FEW) Urine Hyaline Casts Few /HPF Urine Mucus Mod /LPF Laboratory Tests 04/06/19 22:10 Laboratory Tests 04/06/19 22:35 EKG EKG 2157- SR rate 67; left ventricular hypertrophy, no STEMI read by Dr. Noe. Radiology/Procedures Radiology/Procedures PROCEDURE: CHEST AP ONLY AP portable chest 04/06/2019. Reason for exam: Nausea. Comparison is made with a study of 10/30/2018. No infiltrate or effusion is seen. The heart is mildly enlarged, but unchanged. Pulmonary vascularity does not appear congested. IMPRESSION: No acute findings. [] Course & Med Decision Making Course & Med Decision Making Pertinent Labs and Imaging studies reviewed. (See chart for details) ED course: Patient is a 89-year-old female who presents to emergency room with complaints of indigestion and nausea. Her CBC was unremarkable, PTT and INR within normal limits, UA was unremarkable, and CMP revealed elevated BUNs of 27, creatinine 1.2, glucose of 142. The patient's cardiac enzymes and CK-MB profile were within normal limits, her lipase was not elevated. The patient was given 4 mg of Zofran IV, and a GI cocktail. She reported relief of her indigestion and nausea after these medications. I discussed admission with the patient and her family who state that the patient has been previously admitted for similar symptoms and had negative cardiac studies done. The patient stated she did not want to be admitted to the hospital. The patient's symptoms resolved after Zofran and a GI cocktail. Since labs were unremarkable, VSS, EKG with no acute changes, and CXR were unremarkable I have a low suspicion for any cardiac orgin of her sx. The sx began after the patient became visibly upset over being unable to remember ingredients for a recipe with daughter. A Prescription was written for Zofran for the patient to take as needed for nausea. Recommended a bland diet and then advance as tolerated. Patient encouraged follow-up with her primary care doctor next week, return to the ER if symptoms worsen. Patient and her family verbalized an understanding of home care, medications, follow-up, and return to ED instructions and were in agreement with the plan of care. [] Dragon Disclaimer Dragon Disclaimer This electronic medical record was generated, in whole or in part, using a voice recognition dictation system. Departure Departure Impression: Primary Impression: Nervous indigestion Additional Impression: Nausea Disposition: HOME, SELF-CARE Condition: STABLE Referrals: URIEL CHAU MD (PCP) Patient Instructions: Indigestion, [id number], Nausea, Adult, [id number] Additional Instructions: Fill prescriptions and use them as directed. Recommend bland foods such as bananas, rice, applesauce, and dry toast. Then advance her diet as tolerated. Follow-up with your primary care doctor next week. Return to the emergency room if your symptoms worsen. Scripts Ondansetron Hcl (ONDANSETRON HCL) 4 Mg Tablet 1 TAB PO PRN Q6HRS PRN for NAUSEA/VOMITING for 3 Days, #10 TAB 0 Refills Prov: ESVIN MILLER APRN 04/07/19 Problem Qualifiers ESVIN MILLER APRN Apr 06, 2019 22:23
[2019-04-06 22:24] LABS: BASO % 0 % (0-3); EOS # 0.1 x10^3/uL (0.0-0.7); EOS % 1 % (0-3); HEMATOCRIT 37.4 % (36.0-47.0); HEMOGLOBIN 12.3 g/dL (12.0-15.5); LYMPH % 17 % (24-48); MEAN CORPUSCULAR HEMOGLOBIN 29 pg (25-35); MEAN CORPUSCULAR HGB CONC 33 g/dL (31-37); MEAN CORPUSCULAR VOLUME 87 fL (79-100); MONO # 0.3 x10^3/uL (0.0-1.1); MONO % 5 % (0-9); NEUT # 4.5 x10^3/uL (1.8-7.7); NEUT % 77 % (31-73); PLATELET COUNT 163 x10^3/uL (140-400); RED BLOOD COUNT 4.29 x10^6/uL (3.50-5.40); RED CELL DISTRIBUTION WIDTH 13.6 % (11.5-14.5); WHITE BLOOD COUNT 5.9 x10^3/uL (4.0-11.0)
[2019-04-06 22:32] LABS: PROTHROMBIN TIME PATIENT 13.8 SEC (11.7-14.0)
--- NOTE | 2019-04-06 22:40 | RAD ---
AP portable chest 04/06/2019. Reason for exam: Nausea. Comparison is made with a study of 10/30/2018. No infiltrate or effusion is seen. The heart is mildly enlarged, but unchanged. Pulmonary vascularity does not appear congested. IMPRESSION: No acute findings. Electronically signed by: Syd Perkins Jr., MD (04/06/2019 10:37 PM) [facility]
[2019-04-06 22:52] LABS: CALCIUM 8.7 mg/dL (8.5-10.1); CREATININE 1.2 mg/dL (0.6-1.0); GFR 42.4; POTASSIUM 4.3 mmol/L (3.5-5.1)
[2019-04-06 22:59] LABS: ALBUMIN 3.7 g/dL (3.4-5.0); ALBUMIN/GLOBULIN RATIO 1.3 (1.0-1.7); MAGNESIUM 1.9 mg/dL (1.8-2.4); TOTAL BILIRUBIN 0.5 mg/dL (0.2-1.0); TOTAL PROTEIN 6.6 g/dL (6.4-8.2)
[2019-04-06 23:08] LABS: CREATINE KINASE 57 U/L (26-192)
[2019-04-06 23:53] LABS: BILIRUBIN,URINE NEGATIVE (NEG); CLARITY,URINE CLEAR; COLOR,URINE YELLOW; NITRITE,URINE NEGATIVE (NEG); PROTEIN,URINE NEGATIVE (NEG-TRACE)
[2019-04-06 23:58] LABS: BACTERIA,URINE 0 /HPF (0-FEW); HYALINE CASTS, URINE FEW /HPF; RBC,URINE OCC /HPF (0-2); SQUAMOUS EPITHELIAL CELL,UR FEW /LPF; WBC,URINE OCC /HPF (0-4)
[2019-04-07 00:09] VITALS: BP 132/66
[2019-04-07] MEDS ORDERED: ONDA4TAB11 PO (00:36)
--- NOTE | 2019-04-08 06:31 | EKG ---
[facility] [address] [place] [address] Test Date: 2019-04-06 Test Time: 21:57:32 Pat Name: ALMA ROSA HAWKINS Department: Room: Gender: F Commissioner Of Conciliation: : 1930 Requested By: ESVIN MILLER Order Number: [id number] Reading MD: Measurements Intervals [place] Rate: 67 P: 63 AL: 188 QRS: -43 QRSD: 124 T: 34 QT: 458 QTc: 487 Interpretive Statements SINUS RHYTHM ABNORMAL LEFT AXIS DEVIATION LEFT VENTRICULAR HYPERTROPHY ABNORMAL ECG RI6.01 No previous ECG available for comparison
== END 2019-04-07 00:47 | disposition home or self-care (01) ==
LOC: ER 21:03
DX: F45.8 Other somatoform disorders (principal); R11.0 Nausea; E78.00 Pure hypercholesterolemia, unspecified; K21.9 Gastro-esophageal reflux disease without esophagitis; I10 Essential (primary) hypertension; Z91.041 Radiographic dye allergy status; Z88.5 Allergy status to narcotic agent; Z90.710 Acquired absence of both cervix and uterus
CPT/HCPCS: 36415; 71045; 80053; 81001; 82553; 83690; 83735; 84484; 85025; 85610; 85730; 93005; 96374; 99285; J2405